=== PATIENT | female | born 1955 | race Caucasian/White ===

== ENCOUNTER 2018-01-21 05:58 | Observation (INO) | payer BC, SELFPAY ==
[2018-01-21] VITALS (15 sets, daily range): BP systolic 116–146; BP diastolic 62–90; PULSE 77–92; RESP 16–18; TEMP 36.6–37.6; O2SAT 92–100; BMI 33.7; BMI 30.1
--- NOTE | 2018-01-21 06:30 | RAD_ITS ---
STUDY: X-RAY - LEFT ANKLE REASON FOR EXAM: Female, 62 years old. Fell this morning, left ankle pain and swelling TECHNIQUE: 2 view(s) of the ankle. COMPARISON: None. FINDINGS: There is an acute avulsed transverse fracture of the medial malleolus with medial displacement of the distal tibia, oblique fracture of the distal fibula with lateral displacement of the lateral malleolus. The talus is laterally subluxed in relation to the tibial articular surface. Talus dome is intact. There is adjacent soft tissue swelling. There is a additional fracture of the posterior tibia. Normal visualized talus and calcaneus with large enthesophyte and moderate plantar calcaneal spur formation.. The visualized subtalar, talonavicular, calcaneocuboid and tarsal articulations are normal. RAD/Ankle 2 Views IMPRESSION: Trimalleolar fracture with lateral subluxation of the talus and soft tissue swelling. Electronically Signed: Aparna Castillo MD at 6:55 EDT , Service support ,
--- NOTE | 2018-01-21 06:36 | ED.VISSUMM ---
- ER Visit Summary Date of Service: 01/21/18 Chief Complaint: [] Injured the left ankle History of Present Illness: The patient is a 62 F [] planing of injury to left ankle today. She fell when she was walking her dog. Her ankle went inwards. She thinks she broke it. She cannot ambulate. Brought in by EMS. Current severity is moderate. No previous injury. Physical Examination: [] Vital signs reviewed General: Well-nourished well-developed Head: Normocephalic atraumatic Eyes: Pupils equal round and reactive to light extraocular movements intact ENT: TMs clear no hemotympanum no trauma Neck: Nontender full range of motion Cardiovascular: Regular rate rhythm no murmurs normal S1-S2 Respiratory: No distress clear to auscultation bilaterally chest nontender Abdomen: Soft nontender nondistended normal bowel sounds no masses Back: Nontender no CVA tenderness Extremities: Palpation diffuse left ankle with decreased range of motion. Dorsalis pedis pulses present. Skin: malleolus has a very superficial wound suggests that her medial malleolus may have punctured through the skin. No bony protrusion at this time. Neuro alert oriented cranial nerves II through XII intact normal strength sensation reflexes Test Results: [] Emergency Department Course and Treatment: [] Ice pack applied. X-ray of the ankle obtained. Trimalleolar fracture with significant lateral subluxation. Patient given a tetanus shot and Ancef for the fact that she has a puncture wound from the medial portion of the tibia. Discussed with Dr. Soto. Iodine was used to cleanse the wound and a well-padded sugar tong Ortho-Glass splint was placed. She distal neurovascular intact. Pulses remain normal. She will be taken to the operating room in 1 hour for surgical fixation. Treatment Plan: [] Disposition: [] Impression: [] Trimalleolar ankle fracture subluxation with puncture wound This note was generated with [employer] dictation software. It may contain incorrect words, spelling, and punctuation that were not noted in review of the chart prior to signing ED Disposition - Plan for ED Patient: Chief Complaint: Lower Extremity Injury Referrals: [facility] Doctor,Out of [Primary Care Provider] -
[2018-01-21] MEDS: 0.9% Normal Saline 1,000 ML 150 ML IV (07:08)
[2018-01-21] MEDS: Morphine 2 MG/ML Syringe IV ×2 (07:10→22:26)
[2018-01-21] MEDS: Diphth,Pertuss(Acell),Tet Vac 0.5 ML Vial IM (07:33)
--- NOTE | 2018-01-21 09:02 | CON.PCM_ITS ---
Problem List (1) Trimalleolar fracture of left ankle Status: Acute Qualifiers: Encounter type: initial encounter Fracture type: open Reason for Consult Date of Consultation: 01/21/18 History of Present Illness: The patient is a 62 year old F who injured her left ankle this morning when she was walking her dog. Patient states she was going down a hill when she slipped and her ankle twisted. Patient had immediate pain. Patient was unable to ambulate. EMS was called and patient was brought to [facility] emergency room for evaluation. X-rays reveal a trimalleolar ankle fracture. Patient was given tetanus shot in the emergency room. The puncture wound over the medial aspect of the ankle was cleaned in the emergency room with iodine and then placed in a well-padded sugar tong splint. Dr. Soto was consulted. Patient denies any previous trauma or injury to the left ankle. She does report having a right fifth metatarsal fracture in the past. Patient currently denies any chest pain, shortness of breath, fevers chills, or recent infections. Patient has medical history pertinent for hypothyroidism. Last time patient ate was last night at 9 PM. Patient states she does live alone. Patient currently denies any numbness and tingling in the left lower extremity. Chief complaint is pain around the fracture site. Past Medical History Allergies sulfamethoxazole [From Bactrim] Allergy (Verified 01/21/18 06:03) Anaphylaxis trimethoprim [From Bactrim] Allergy (Verified 01/21/18 06:03) Anaphylaxis adhesive tape Adverse Reaction (Verified 01/21/18 06:03) Hives Home Medications: Ambulatory Orders Medication Instructions Recorded Levothyroxine [Synthroid] 88 mcg PO DAILY 01/21/18 Surgical History: - - Myomectomy Lives: Alone Smoking Status: Never smoker Patient Problems: Active and Suspected Problems Trimalleolar fracture of left ankle (Acute) Objective: Vital signs are stable, afebrile. Patient resting comfortably in bed. Patient currently has splint placed from emergency room department. Patient has good capillary refill in digits are pink and warm. Sensations intact to the toes. Patient is able to wiggle her toes. Patient reports no knee pain. Patient denies any numbness and tingling. Pain is primarily at the ankle. - Physical Exam General: Alert, Oriented x3, Cooperative Extremities: Capillary Refill Less than 3 Seconds Vital Signs Temp Pulse Resp BP Pulse Ox 98.1 F 90 16 146/89 H 98 01/21/18 07:15 01/21/18 08:12 01/21/18 08:12 01/21/18 08:12 01/21/18 08:12 Oxygen Delivery Method Room Air Weight: 86.4 kg Body Mass Index (BMI) 33.7 Assessment/Plan Active and Suspected Problems Trimalleolar fracture of left ankle (Acute) Diagnostic studies: X-rays were reviewed from [facility] on January 21, 2018 including 2 views which does reveal a left trimalleolar ankle fracture. There is a displaced medial malleolus fragment with laterally displaced distal fibula fracture with lateral subluxation of the talus. On lateral view does appear to be a posterior medial malleolus fracture. No other fractures in the ankle and foot are noted. 1. Left open trimalleolar ankle fracture 2. Hypothyroidism Case was discussed with Dr. Norm Soto. The plan will be for irrigation debridement with open reduction internal fixation of the left ankle secondary to an open trimalleolar ankle fracture. Patient wishes to proceed with above- stated procedure. Last time patient had any food was last night at 9 PM. Patient will remain n.p.o. and will get Ancef preoperatively. Potential risks, benefits, and complications of this procedure were discussed in detail including but not limited to , infection, nerve and blood vessel damage, persistent pain, numbness, tingling, paresthesias, blood clot, pulmonary embolism, and requirement for further surgery. The patient expressed full understanding has no further questions for the doctor. Patient does agree to proceed with the above-stated procedure and has signed the surgery consent form.
--- NOTE | 2018-01-21 12:15 | RAD_ITS ---
STUDY: X-RAY - LEFT ANKLE REASON FOR EXAM: Female, 62 years old. ORIF TECHNIQUE: 3 C-arm view(s) of the ankle. 7 seconds of fluoroscopy time. COMPARISON: Earlier the same day. FINDINGS: These views show placement of compression plate and screws across distal fibula and 2 screws through the medial malleolus repairing fractures into anatomic alignment and position. Normal ankle mortise. Electronically Signed: Boy Pool MD at 16:51 EDT , Service support , RAD/Ankle 2 Views
[2018-01-21] MEDS: Dext 5%-0.45% NS 1,000 ML 100 ML IV (16:51)
[2018-01-21] MEDS: Aspirin 325 MG Tablet PO (18:25)
[2018-01-21] MEDS: Ondansetron 4 MG/2 ML Vial IV (18:25)
[2018-01-21] MEDS: Cefazolin 1 GM/50 ML BAG IV (20:53)
[2018-01-22] MEDS: HYDROcodone Bitartrate/Apap 5/325 Tablet PO ×2 (02:03→08:29)
[2018-01-22 02:20] VITALS: BP 109/60; PULSE 80; RESP 18; TEMP 36.6; O2SAT 97
[2018-01-22] MEDS: Cefazolin 1 GM/50 ML BAG IV (05:07)
[2018-01-22] MEDS: Levothyroxine 88 MCG Tablet PO (05:10)
[2018-01-22] MEDS: Ondansetron 4 MG/2 ML Vial IV (06:44)
[2018-01-22] MEDS: 0.9% NaCl Peripheral Flush Adult/Peds IV ×2 (06:45→10:01)
[2018-01-22] MEDS: Morphine 2 MG/ML Syringe IV ×2 (06:45→10:00)
--- NOTE | 2018-01-22 07:06 | PCM.PN.ORT ---
Patient Problems: Active and Suspected Problems Trimalleolar fracture of left ankle (Acute) Subjective: The patient was sitting in bed upon examination. Patient denies any chest pain, shortness of breath, dizziness, lightheadedness, nausea or vomiting, or calf pain. Pain is controlled on medications. No adverse overnight events. Patient states her pinky toe is being crushed. The Lacho wrap was loosened and patient states this was very helpful. Patient has physical therapy this morning for instruction on gait training with crutches/walker. Objective: Vital signs stable and afebrile. Patient is able to wiggle her toes Sensation is intact to toes Splint is clean dry and intact without breakthrough drainage. Lacho wrap was loosened around the toes which improved symptoms. Capillary refill less than 3 seconds, toes are pink and warm. - Physical Exam General: Alert, Oriented x3, Cooperative, No apparent distress Vital Signs Temp Pulse Resp BP Pulse Ox 98 F 80 18 109/60 97 01/22/18 02:20 01/22/18 02:20 01/22/18 02:20 01/22/18 02:20 01/22/18 02:20 Oxygen Flow Rate (L/min) 2 Oxygen Delivery Method Room Air Weight: 77.111 kg Body Mass Index (BMI) 30.1 Intake and Output for Last 24 Hours 01/20/18 01/21/18 01/22/18 23:59 23:59 23:59 Intake Total 1882 / 1882 2258 / 2258 Output Total 330 / 330 1800 / 1800 Balance 1552 / 1552 458 / 458 Medical Necessity - Tobacco Use Smoking Status: Never smoker Assessment/Plan Active and Suspected Problems Trimalleolar fracture of left ankle (Acute) 1. Status post left irrigation debridement and open reduction internal fixation trimalleolar left ankle fracture postop day #1 2. Continue pain medications: Currently on [place] and controlling pain 3. DVT prophylaxis: Aspirin 325 mg twice daily with food 4. PT/OT: Nonweightbearing, will teach gait training with crutches/walker. 5. Disposition: Patient will follow-up with Dr. Youngblood in approximately 12 days for removal of sutures and repeat x-ray. Prescriptions are attached to chart. Patient will follow-up postoperatively per discharge instructions.
--- NOTE | 2018-01-22 07:10 | PN.ORTHO_ITS ---
Patient Problems: Active and Suspected Problems Trimalleolar fracture of left ankle (Acute) Subjective: The patient was sitting in bed upon examination. Patient denies any chest pain , shortness of breath, dizziness, lightheadedness, nausea or vomiting, or calf pain. Pain is controlled on medications. No adverse overnight events. Patient states her pinky toe is being crushed. The Lacho wrap was loosened and patient states this was very helpful. Patient has physical therapy this morning for instruction on gait training with crutches/walker. Objective: Vital signs stable and afebrile. Patient is able to wiggle her toes Sensation is intact to toes Splint is clean dry and intact without breakthrough drainage. Lacho wrap was loosened around the toes which improved symptoms. Capillary refill less than 3 seconds, toes are pink and warm. - Physical Exam General: Alert, Oriented x3, Cooperative, No apparent distress Vital Signs Temp Pulse Resp BP Pulse Ox 98 F 80 18 109/60 97 01/22/18 02:20 01/22/18 02:20 01/22/18 02:20 01/22/18 02:20 01/22/18 02:20 Oxygen Flow Rate (L/min) 2 Oxygen Delivery Method Room Air Weight: 77.111 kg Body Mass Index (BMI) 30.1 Intake and Output for Last 24 Hours 01/20/18 01/21/18 01/22/18 23:59 23:59 23:59 Intake Total 1882 / 1882 2258 / 2258 Output Total 330 / 330 1800 / 1800 Balance 1552 / 1552 458 / 458 Medical Necessity - Tobacco Use Smoking Status: Never smoker Assessment/Plan Active and Suspected Problems Trimalleolar fracture of left ankle (Acute) 1. Status post left irrigation debridement and open reduction internal fixation trimalleolar left ankle fracture postop day #1 2. Continue pain medications: Currently on [place] and controlling pain 3. DVT prophylaxis: Aspirin 325 mg twice daily with food 4. PT/OT: Nonweightbearing, will teach gait training with crutches/walker. 5. Disposition: Patient will follow-up with Dr. Youngblood in approximately 12 days for removal of sutures and repeat x-ray. Prescriptions are attached to chart. Patient will follow-up postoperatively per discharge instructions.
--- NOTE | 2018-01-22 07:12 | PCM.DC.ORTHO ---
Discharge Diet: No Restrictions Discharge Activity: May Not Drive Ice area for (Minutes): 20 - Ice area for 20 minutes each hour while awake Weight Bearing Status: No weight bearing - Left lower extremity Keep extremity elevated above heart level: Operative Extremity Call your doctor if your incision/area has: Continuous Slow Oozing, Sudden Increased Bleeding, Increased Pain/ Swelling, Increased Redness, Foul Smelling Discharge Call your doctor if you observe: Fever of 101 or Higher, Coldness, Increased Pain, Numbness or Tingling, Change in Color Additional Instructions: Must cover to shower Patient will follow-up in approximately 12 days at [place] [facility] with Dr. Youngblood for suture removal and follow-up x-ray. At that time patient will be placed in a cast at follow-up. Allergies/Adverse Reactions: Allergies sulfamethoxazole [From Bactrim] Allergy (Verified 01/21/18 06:03) Anaphylaxis trimethoprim [From Bactrim] Allergy (Verified 01/21/18 06:03) Anaphylaxis adhesive tape Adverse Reaction (Verified 01/21/18 06:03) Hives naproxen Adverse Reaction (Verified 01/21/18 17:33) Other FEVER Medications to take at Discharge Levothyroxine [Synthroid] 88 mcg PO 0600 01/21/18 Aspirin 325 mg PO BIDCM #60 tab 01/22/18 Hydrocodone Bitart/Apap 5-325 [[place] 5/325] 1 - 2 tab PO Q6H PRN PRN 7 Days #56 tab 01/22/18 The following prescriptions were given: Hydrocodone Bitart/Apap 5-325 [[place] 5/325] 1 - 2 tab PO Q6H PRN PRN 7 Days #56 tab PRN Reason: Mild-moderate pain (scale 1-5) Aspirin 325 mg PO BIDCM #60 tab Primary Care Physician: [facility] ,Out of [Primary Care Provider] - Please Follow Up With: Kb Youngblood MD When: Schedule f/u with Dr. Youngblood for February 03, 2018
[2018-01-22 08:20] VITALS: BP 112/65; PULSE 70; RESP 18; TEMP 36.7; O2SAT 94
[2018-01-22] MEDS: Aspirin 325 MG Tablet PO (08:26)
--- NOTE | 2018-01-22 13:50 | CHAPLAIN ---
Type of Pastoral Visit _x__ Initial Visit ___ Follow-up Visit ___ On-call Visit ___ General Patient Visit ___ Spiritual Assessment ___ Family Conference ___ Bereavement ___ Rapid Response ___ Code Blue ___ Other (describe below) Pastoral Care Referral From _x__ Patient ___ Family ___ Nurse ___ Physician ___ X Ray Service Engineer ___ Outboard Motor Tester ___ Other (describe below) Sacrament/Intervention ___ Active listening ___ Anointing ___ Zoroastrianism ___ Bereavement ___ Communion ___ Judy exploration ___ ___ Life review ___ Prayer ___ Reconciliation ___ Sacrament of Sick _x__ Supportive presence ___ Wedding ___ Other (describe below) Pastoral Comments patient requested contact with her parish; pt reported that she had visit from [facility] [employer]al[employer] Apprentice and she was satisfied; pt expressed thankfulness for the visit and personal attention
[2018-01-22 14:00] VITALS: BP 122/83; PULSE 79; RESP 18; TEMP 36.4; O2SAT 99
== END 2018-01-22 14:38 | disposition home or self-care (01) ==
LOC: ED 08:03 → SDC 08:13 → AC 08:14 → MS3 01-22 06:13
PROVIDERS: Admitting Provider Orthopaedic Surgery; Emergency Provider Emergency Medicine; Visit Provider Specialist
DX: S82.852B Displaced trimalleolar fracture of left lower leg, initial encounter for open fracture type I or II (principal); W17.81XA Fall down embankment (hill), initial encounter; Y93.K1 Activity, walking an animal; Y92.9 Unspecified place or not applicable; Z23 Encounter for immunization; E03.9 Hypothyroidism, unspecified; Z79.899 Other long term (current) drug therapy; J45.909 Unspecified asthma, uncomplicated
CPT/HCPCS: 27822; 29515; 73600; 76000; 90715; 96361; 96365; 96366; 96375; 96376; 97162; 97166; 99218; 99285; J7030; A4216; G0378; J2405; J7799

== ENCOUNTER 2021-03-02 15:42 | Emergency (ER) | payer BC, SELFPAY ==
[2021-03-02 15:43] VITALS: BP 136/81; PULSE 63; RESP 18; TEMP 36.6; O2SAT 98; BMI 27.3
--- NOTE | 2021-03-02 15:57 | EKG12_ITS ---
Test Reason : UPPER EXTREMITY Blood Pressure : / mmHG Vent. Rate : 070 BPM Atrial Rate : 070 BPM P-R Int : 164 ms QRS Dur : 072 ms QT Int : 390 ms P-R-T Axes : 054 035 018 degrees QTc Int : 421 ms Normal sinus rhythm Low voltage QRS Borderline ECG Confirmed by FINN JARAMILLO, CELSO ([id number]), research editor ALONZO ABREU ([id number]) on 03/05/2021 10:07:09 AM Referred By: SHERIF Confirmed By:CELSO BRISENO MD
--- NOTE | 2021-03-02 15:58 | EX.ED.UPPERE ---
HPI History of Present Illness Chief Complaint: Upper Extremity Injury PFSH PFSH Home Medications levothyroxine 88 mcg PO 0600 01/21/18 [History Last Taken 01/20/18] aspirin 325 mg PO BIDCM #60 tab 01/22/18 [Rx Last Taken Unknown] hydrocodone-acetaminophen 1 - 2 tab PO Q6H PRN PRN 7 Days #56 tab 01/22/18 [Rx Last Taken Unknown] Allergy/AdvReac Type Severity Reaction Status Date / Time sulfamethoxazole Allergy Anaphylaxis Verified 03/02/21 15:42 [From Bactrim] trimethoprim [From Bactrim] Allergy Anaphylaxis Verified 03/02/21 15:42 adhesive tape AdvReac Hives Verified 03/02/21 15:42 naproxen AdvReac Other Verified 03/02/21 15:42 Social History Smoking Status: Never smoker EXAM Physical Exam Const Vital Signs: 03/02/21 15:43 Temperature 97.8 F Temperature Source Temporal Pulse Rate 63 Respiratory Rate 18 Blood Pressure 136/81 H Blood Pressure Mean 99 Pulse Ox 98 Oxygen Delivery Method Room Air Discharge Plan Triage Chief Complaint: Upper Extremity Injury ED Provider: Candy Gordon Dx/Rx/DC Orders Prescriptions: No Action levothyroxine 88 MCG tablet 88 mcg PO 0600 RF: 0 aspirin 325 MG tablet 325 mg PO BIDCM Qty: 60 RF: 0 hydrocodone-acetaminophen 1 TABLET tablet 1 - 2 tab PO Q6H PRN PRN (Reason: Mild-moderate pain (scale 1-5)) 7 Days Qty: 56 RF: 0 Primary Care Provider: [facility] Doctor,Out of
--- NOTE | 2021-03-02 15:59 | EDS_ITS ---
HPI History of Present Illness Chief Complaint: Upper Extremity Injury Detail of Chief Complaint: Left arm pain Informant: patient Onset/Context/Timing Onset: Yesterday Context: Gradual Onset Current Severity: Moderate Maximum Severity: Moderate Narrative Narrative: Patient present secondary left arm pain. She states last evening she developed pain over the thenar eminence and it has been radiating up her arm. She does admit to a brief episode of chest pain last evening. No known injury. [facility] Medical History (Updated 03/02/21 @ 17:[address] Candy Gordon MD) Domenico's thyroiditis Home Medications levothyroxine 88 mcg PO 0600 01/21/18 [History Last Taken 01/20/18] aspirin 325 mg PO BIDCM #60 tab 01/22/18 [Rx Last Taken Unknown] hydrocodone-acetaminophen 1 - 2 tab PO Q6H PRN PRN 7 Days #56 tab 01/22/18 [Rx Last Taken Unknown] prednisone 40 mg PO DAILY #8 tab 03/02/21 [Rx Last Taken Unknown] Allergy/AdvReac Type Severity Reaction Status Date / Time sulfamethoxazole Allergy Anaphylaxis Verified 03/02/21 15:42 [From Bactrim] trimethoprim [From Bactrim] Allergy Anaphylaxis Verified 03/02/21 15:42 adhesive tape AdvReac Hives Verified 03/02/21 15:42 naproxen AdvReac Other Verified 03/02/21 15:42 Social History Smoking Status: Never smoker ROS ROS ED Constitutional Constitutional ED: Denies chills or fever(s) Eyes Eyes: Denies change in vision ENT ENT ED: Denies sore throat Cardiovascular Cardiovascular: Reports chest pain Respiratory/Chest Respiratory/Chest: Denies cough or dyspnea Gastrointestinal Gastrointestinal: Denies abdominal pain, diarrhea, nausea or vomiting Genitourinary Genitourinary ED: Denies dysuria Musculoskeletal Musculoskeletal: Reports arthralgias; Denies back pain Integumentary Denies rash Neurologic Neurologic: Denies headache(s) or weakness Psychiatric Psychiatric: Denies anxiety or depression Endocrine Endocrinology: Denies polydipsia or polyuria Allergic/Immunologic Allergic/Immunologic ED: Denies urticaria EXAM Physical Exam Const Vital Signs: 03/02/21 15:43 03/02/21 16:27 Temperature 97.8 F Temperature Source Temporal Pulse Rate 63 Respiratory Rate 18 Blood Pressure 136/81 H Blood Pressure Mean 99 Pulse Ox 98 100 Oxygen Delivery Method Room Air Room Air Positive well nourished and well developed General Appearance ED: well developed HEENT Reports normocephalic and head/scalp atraumatic Eyes PERRL and EOMs intact bilaterally Neck supple Chest Wall inspection of chest normal and palpation of chest normal Resp normal respiratory effort and clear to auscultation bilaterally Cardio regular rate and regular rhythm GI normal to inspection, nondistended, normoactive bowel sounds Palpation: soft Extremity normal to inspection Extremity Narrative: Mild tenderness over the radial aspect of the right wrist. No significant edema. Strong pulses and normal cap refill. Neuro oriented x3 and no sensory deficits noted Sensorium / Orientation: alert Motor Exam: strength 5/5 throughout Psych mental status grossly normal Skin no rashes or lesions noted MDM MDM MDM Narrative Medical decision making narrative: Patient was placed on compliance monitor. EKG, labs, chest x-ray are obtained. Patient was given aspirin. Lab Data Attestation: I reviewed the patient's lab results. Labs: Laboratory Results - last 24 hr 03/02/21 03/02/21 03/02/21 16:19 16:19 16:19 WBC 6.9 RBC 4.24 Hgb 12.8 Hct 39.1 MCV 92.2 MCH 30.2 MCHC 32.7 RDW Std Deviation 41.5 RDW Coeff of [place] 12.3 Plt Count 293 MPV 10.3 Immature Gran % (Auto) 0.100 Neut % (Auto) 49.5 Lymph % (Auto) 36.8 Villalba % (Auto) 8.8 Eos % (Auto) 4.1 Baso % (Auto) 0.7 Absolute Neuts (auto) 3.4 Absolute Lymphs (auto) 2.54 Nucleated RBC % 0 D-Dimer Quant (PE/DVT) < 0.27 L Sodium 141 Potassium 3.8 Chloride 107 Carbon Dioxide 29.0 Anion Gap 5 BUN 15 Creatinine 0.89 Estim Creat Clear Calc 50.51 Est GFR (MDRD) Af Amer 82 Est GFR (MDRD) Non-Af 68 BUN/Creatinine Ratio 16.9 Glucose 84 Calcium 9.1 Troponin I < 0.015 Radiography Chest X-Ray - ED: 1 View, Read by ED Physician, Normal, Heart, Lungs and Mediastinum Diagnostic Testing: Radiology Impression Chest X-Ray 03/02/21 16:25 IMPRESSION: 1. No airspace consolidation or pleural effusion. 2. Possible 6 mm nodule in the right mid lung. No comparison study. Recommend chest CT. Electronically Signed: Benedict Cortes MD (Brooks) at 16:54 EDT , Service support , EKG Initial EKG: Attestation: I personally reviewed and interpreted this EKG as follows: Interpretation: Sinus Rhythm (Sinus at 70 with no acute ischemia.) Treatment and Re-Evaluation Comments:: Chest x-ray per my interpretation was no obvious acute abnormalities. Radiology interpretation is reviewed. Test results discussed with the patient including negative D-dimer and troponin. She is reassured with these findings. She will be treated the short course of prednisone for neuropathy. We did discuss the right lung nodule on her chest x-ray. She states that the [facility] has been following this for years. Discharge Plan Triage Chief Complaint: Upper Extremity Injury ED Provider: Candy Gordon Dx/Rx/DC Orders Clinical Impression: Neuropathy Instructions: ED Neuropathy, Peripheral Prescriptions: New prednisone 20 MG tablet 40 mg PO DAILY Qty: 8 RF: 0 No Action levothyroxine 88 MCG tablet 88 mcg PO 0600 RF: 0 aspirin 325 MG tablet 325 mg PO BIDCM Qty: 60 RF: 0 hydrocodone-acetaminophen 1 TABLET tablet 1 - 2 tab PO Q6H PRN PRN (Reason: Mild-moderate pain (scale 1-5)) 7 Days Qty: 56 RF: 0 Primary Care Provider: Clementina Mccloud Referrals: Clementina Mccloud MD [Primary Care Provider] - 1 Week if not improving Disposition Disposition: Home, self care
--- NOTE | 2021-03-02 16:01 | NURSING ---
NO OLD EKGS
--- NOTE | 2021-03-02 16:25 | RAD_ITS ---
STUDY: X-RAY CHEST REASON FOR EXAM: Female, 65 years old. chest pain TECHNIQUE: AP COMPARISON: None. FINDINGS: EKG leads project over the chest. 6 mm nodule projects in the right mid lung field just over the superior margin of the right posterior seventh rib. There is no demonstrated pleural abnormality. Normal size heart. Normal mediastinum and javy. Normal visualized pulmonary arteries. There is atherosclerotic tortuosity of the aortic arch and descending thoracic aorta. There are diffuse degenerative changes of the visualized thoracic spine. Normal visualized ribs, clavicles, and shoulders. There is no demonstrated abnormality of the visualized soft tissue structures of the upper abdomen. RAD/Chest 1 View (Portable) IMPRESSION: 1. No airspace consolidation or pleural effusion. 2. Possible 6 mm nodule in the right mid lung. No comparison study. Recommend chest CT. Electronically Signed: Benedict Cortes MD ([place]oks) at 16:54 EDT , Service support ,
[2021-03-02 16:27] VITALS: O2SAT 100
[2021-03-02] MEDS: Aspirin 81 MG TAB.CHEW 324 MG PO (16:31)
[2021-03-02 16:34] LABS: Absolute Lymphocyte Count 2.54 X10^3/uL (0.83-4.51); Absolute Neutrophil Count 3.4 X10^3/uL (2.0-7.7); Basophil# 0.05 X10^3/uL; Basophil% 0.7 % (0-1); Eosinophil# 0.28 X10^3/uL; Eosinophils% 4.1 % (0-5); Hematocrit 39.1 % (37-47); Hemoglobin 12.8 g/dL (12.0-15.0); Lymphocyte # 2.54 X10^3/ul (0.83-4.51); Lymphocyte % 36.8 % (19-41); Mean Corp Hgb Conc 32.7 g/dL (32-36); Mean Corpuscular Hgb 30.2 pg (27.0-32.0); Mean Corpuscular Volume 92.2 fL (81-99); Mean Platelet Vol. 10.3 fl (6.2-12.0); Monocyte# 0.61 X10^3/uL; Monocyte% 8.8 % (0-10); NRBC Flagged by Analyzer 0 % (0-5); Neutrophil # 3.42 X10^3/uL (2.7-7.7); Neutrophil % 49.5 % (47-70); Platelet Count 293 K/mm3 (150-450); RBC Distribution Width CV 12.3 % (11.6-14.6); RBC Distribution Width SD 41.5 fl (35.1-43.9); Red Blood Count 4.24 M/mm3 (4.2-5.4); White Blood Count 6.9 K/mm3 (4.4-11.0)
[2021-03-02 16:44] LABS: Anion Gap 5 (5-15); BUN 15 mg/dL (7-18); BUN/Creat Ratio 16.9 RATIO (10-20); Calcium,Total 9.1 mg/dL (8.5-10.1); Chloride 107 mmol/L (98-107); Creatinine, Serum 0.89 mg/dL (0.55-1.02); EST Glomerular Filtration Rate 68 mL/min (>60); Est Glom Filt Rate - Afr Amer 82 mL/min (>60); Estimated Creatinine Clearance 50.51 ml/min; Glucose 84 mg/dL (74-106); Potassium 3.8 mmol/L (3.5-5.1); Sodium Level 141 mmol/L (136-145)
[2021-03-02 16:50] LABS: D-Dimer Quantitative (DVT/PE) < 0.27 FEU/ug/m (0.27-0.49)
[2021-03-02] MEDS: predniSONE 20 MG Tablet 40 MG PO (17:24)
== END 2021-03-02 17:27 | disposition home or self-care (01) ==
PROVIDERS: Emergency Provider Emergency Medicine; PCP Internal Medicine
DX: G62.9 Polyneuropathy, unspecified (principal); E06.3 Autoimmune thyroiditis; Z79.82 Long term (current) use of aspirin; Z79.899 Other long term (current) drug therapy
CPT/HCPCS: 71045; 80048; 84484; 85025; 85379; 93005; 99285; A4216

== ENCOUNTER 2021-12-13 09:48 | Outpatient (CLI) | payer BC, MEDICARE, SELFPAY ==
[2021-12-13 11:08] LABS: CRP, High Sensitivity Cardiac 2.89 mg/L
== END 2021-12-13 23:59 | disposition home or self-care (01) ==
PROVIDERS: PCP Internal Medicine; Referring Provider Internal Medicine Cardiovascular Disease; Visit Provider Internal Medicine Cardiovascular Disease
DX: R07.9 Chest pain, unspecified (principal)
CPT/HCPCS: 36415; 86141

== ENCOUNTER 2021-12-20 06:41 | Outpatient (CLI) | payer BC, MEDICARE, SELFPAY ==
--- NOTE | 2021-12-20 06:57 | ECHOD_ITS ---
Reason For Study: Chest pain Procedure This was a 2D Doppler, Color Flow transthoracic echocardiogram. Exam performed in department. Left Ventricle Normal LV size. Left ventricular systolic function is normal. The estimated ejection fraction is 55 %. Normal diastology for age. No regional wall motion abnormalities noted. Right Ventricle Normal RV size. Normal systolic function. Atria Normal left atrium. Normal right atrium. Mitral Valve Normal mitral valve. Tricuspid Valve Normal tricuspid valve. Mild tricuspid valve insufficiency. Pulmonary artery systolic pressure is 24 mmHg. Aortic Valve Normal aortic valve. Trisinus/trileaflet aortic valve. Pulmonic Valve Normal pulmonic valve. Great Vessels Normal aortic root. The pulmonary artery is normal size. Normal inferior vena cava. Pericardium/Pleural No pericardial effusion. MMode/2D Measurements & Calculations LVIDd: 4.4 cm IVSd: 0.81 cm Ao root diam: 2.7 cm LVIDs: 2.5 cm LVPWd: 0.75 cm RVDd: 3.0 cm FS: 43.8 % LAV(MOD-bp): 45.9 ml LVAd ap4: 21.7 cm2 LVAd ap2: 23.4 cm2 LAV(MOD-bp) Indexed: 27.0 ml/m2 LVLd ap4: 6.9 cm LVLd ap2: 6.7 cm LAV(MOD-sp2): 50.9 ml EDV(MOD-sp4): 56.7 ml EDV(MOD-sp2): 69.8 ml LAV(MOD-sp4): 40.0 ml EDV(sp4-el): 58.4 ml EDV(sp2-el): 69.5 ml LVAs ap4: 10.4 cm2 LVAs ap2: 11.6 cm2 LVLs ap4: 5.6 cm LVLs ap2: 5.7 cm ESV(MOD-sp4): 16.7 ml ESV(MOD-sp2): 19.7 ml ESV(sp4-el): 16.3 ml ESV(sp2-el): 19.8 ml EF(MOD-sp4): 70.6 % EF(MOD-sp2): 71.8 % EF(sp4-el): 72.0 % SV(MOD-sp4): 40.0 ml SV(MOD-sp2): 50.2 ml SV(sp4-el): 42.0 ml LA dimension(2D): 3.5 cm LA A4 area: 16.0 cm2 RA A4 area: 14.7 cm2 Doppler Measurements & Calculations MV E max carlos: 101.5 cm/sec Lat Peak E' Carlos: 11.6 cm/sec Med Peak E' Carlos: 8.3 cm/sec MV A max carlos: 74.0 cm/sec E/E' lat: 8.7 E/E' med: 12.3 MV E/A: 1.4 Ao V2 max: 128.9 cm/sec LV V1 max: 109.9 cm/sec PA V2 max: 97.1 cm/sec Ao max P.7 mmHg LV V1 max P.8 mmHg TR max carlos: 227.4 cm/sec TR max P.7 mmHg ECHO/Echo Complete Interpretation Summary Normal LV size. Left ventricular systolic function is normal. The estimated ejection fraction is 55 %. Normal diastology for age. Pulmonary artery systolic pressure is 24 mmHg. Ordering Physician: Alonso Hayes Referring Physician: Clementina Mccloud Performed By: Selena Norris RDCS
--- NOTE | 2021-12-20 17:05 | STRESSREP ---
Stress Test Report Exercise myocardial perfusion stress test. 66-year-old lady with a history of chest pain. Stress protocol: Resting EKG demonstrates normal sinus rhythm with a rate of 64 bpm. Resting blood pressure is 122/70 mmHg. The patient exercised according to regular Macho protocol for total duration of 7 minutes and 30 seconds. Patient completed 1 minute and 30 seconds into stage III of the Macho protocol. The maximum heart rate was 155 bpm which was 100% of max impact at heart rate. The maximum workload was 10.1 metabolic equivalents. Patient maintained sinus rhythm throughout the recording. At rest there were no ST or T wave changes noted suggest ischemia. At peak exercise upsloping ST changes were noted which did not meet the criteria for ischemia. The peak blood pressure was 152/68. Myocardial perfusion protocol. 11.5 mCi of technetium 99m sestamibi was injected at rest. The patient exercised according to regular Macho protocol for total duration of 7 minutes and 30 seconds. At peak exercise 33.5 mCi of technetium 99m sestamibi was injected stress images were obtained stress and rest images were reconstructed and compared in the short axis vertical long and horizontal long axis. Gated images were also obtained per Diffusion SPECT analysis: Review of the stress images demonstrate normal uptake of tracer noted in all areas of the myocardium. The resting images similarly demonstrate normal uptake of tracer noted in all areas of the myocardium. No areas of reversibility are noted to suggest ischemia and no previous infarct is noted. Gated SPECT analysis: The gated ejection fraction is noted to be 83%. Conclusion: Normal exercise myocardial perfusion stress test at a moderate workload. Preserved ejection fraction.
== END 2021-12-20 23:59 | disposition home or self-care (01) ==
PROVIDERS: PCP Internal Medicine; Referring Provider Internal Medicine Cardiovascular Disease; Visit Provider Internal Medicine Cardiovascular Disease
DX: R07.9 Chest pain, unspecified (principal)
CPT/HCPCS: 78452; 93017; 93306; A9500; A4216

== ENCOUNTER 2021-12-30 13:05 | Outpatient (CLI) | payer BC, MEDICARE, SELFPAY ==
[2021-12-29 10:00] VITALS: BP 118/62; PULSE 57; RESP 16; O2SAT 99; BMI 27.8
--- NOTE | 2021-12-30 13:10 | CT_ITS ---
STUDY: CT CHEST WITHOUT CONTRAST REASON FOR EXAM: Female, 66 years old. CAD RADIATION DOSAGE (If Supplied By Facility): CTDIvol = ( 12.19 ) mGy, DLP = ( 146.28 ) mGycm TECHNIQUE: Transaxial imaging was performed without the administration of intravenous contrast material. Individualized dose optimization techniques were used for this CT. COMPARISON: None. FINDINGS: The lungs demonstrate a 9 mm calcified granuloma in the right mid lung field.. There is no demonstrated pleural abnormality. Normal heart and pericardium. Normal mediastinum. Normal hilar regions. Normal unenhanced pulmonary arteries. Normal aorta arch and descending thoracic aorta. Normal osseous structures. There is no demonstrated abnormality of the visualized upper abdomen. CT/Limited Chest CT w/CCTA IMPRESSION: Postinflammatory calcification right lung. Electronically Signed: Zoran Simon MD at 7:13 EDT ,
--- NOTE | 2021-12-30 16:46 | CA.SCORE ---
Calcium Scoring Coronary Calcium Scoring: High-resolution Computed Tomographic imaging of the chest was performed on [December 30, 2021], with particular attention paid to the coronary arteries. Images from the examination were analyzed for the presence and extent of coronary artery calcification , using coronary calcium quantification software. The patient tolerated the procedure well and there were no complications. The results of the coronary calcification analysis are provided below. Coronary calcium score. Left main-score 0.7 Left anterior descending artery score 0 Left circumflex artery score 0 Right coronary artery score 0 Total Agatston score 0.7 The above is suggestive of 10th percentile ranking. Calcium Scoring Interpretation: 0 No identifiable atherosclerotic plaque. Very low cardiovascular disease risk. <5% chance of presence coronary artery disease A Negative Examination 1-10 Minimal Plaque burden. Significant coronary artery disease very unlikely. 11-100 Mild plaque burden. Likely mild or minimal coronary atherosclerosis. 101-400 Moderate plaque burden Moderate non-obstructive coronary artery disease highly likely. Over 400 Extensive plaque burden. High likelihood of at least one significant coronary stenosis (>50% diameter)
== END 2021-12-30 23:59 | disposition home or self-care (01) ==
PROVIDERS: PCP Internal Medicine; Referring Provider Internal Medicine Cardiovascular Disease; Visit Provider Internal Medicine Cardiovascular Disease
DX: R07.9 Chest pain, unspecified (principal); I25.10 Atherosclerotic heart disease of native coronary artery without angina pectoris
CPT/HCPCS: 75571; 76380

== ENCOUNTER → 2023-02-09 | Outpatient (CLI) | payer MEDICARE, OTHER, SELFPAY ==
[2023-02-09 16:02] LABS: Absolute Lymphocyte Count 1.98 X10^3/uL (0.83-4.51); Absolute Neutrophil Count 3.1 X10^3/uL (2.0-7.7); Basophil# 0.07 X10^3/uL; Basophil% 1.2 % (0-1); Eosinophil# 0.24 X10^3/uL; Eosinophils% 4.1 % (0-5); Hematocrit 41.6 % (37-47); Lymphocyte # 1.98 X10^3/ul (0.83-4.51); Lymphocyte % 33.7 % (19-41); Mean Corp Hgb Conc 31.3 g/dL (32-36); Mean Corpuscular Volume 95.9 fL (81-99); Mean Platelet Vol. 10.7 fl (6.2-12.0); Monocyte# 0.52 X10^3/uL; Monocyte% 8.8 % (0-10); NRBC Flagged by Analyzer 0 % (0-5); Neutrophil # 3.05 X10^3/uL (2.7-7.7); Neutrophil % 51.9 % (47-70); Platelet Count 279 K/mm3 (150-450); RBC Distribution Width CV 12.1 % (11.6-14.6); Red Blood Count 4.34 M/mm3 (4.2-5.4); White Blood Count 5.9 K/mm3 (4.4-11.0)
[2023-02-09 16:25] LABS: Ferritin 54 ng/mL (8-252); Iron 80 ug/dL (50-170); Iron Binding Capacity,Total 266 ug/dL (250-450); PERCENT IRON SATURATION 30.1 % (15.0-55.0)
[2023-02-09 17:32] LABS: Vitamin D,25 Hydroxy 69.7 ng/mL
== END | disposition home or self-care (01) ==
LOC: BIMLAB 14:16
PROVIDERS: PCP Internal Medicine; Referring Provider Internal Medicine; Visit Provider Internal Medicine
DX: E55.9 Vitamin D deficiency, unspecified (principal); E03.9 Hypothyroidism, unspecified; Z86.39 Personal history of other endocrine, nutritional and metabolic disease
CPT/HCPCS: 36415; 82306; 82728; 83540; 83550; 85025

== ENCOUNTER → 2023-08-04 | Outpatient (CLI) | payer MEDICARE, OTHER, SELFPAY ==
--- NOTE | 2023-08-04 15:10 | RAD_ITS ---
STUDY: X-RAY - LUMBAR SPINE REASON FOR EXAM: Female, 67 years old. Back pain. TECHNIQUE: 2 view(s) of the lumbar spine were obtained. COMPARISON: None FINDINGS: Osteopenia. Normal lumbar lordosis. Rotatory dextroscoliosis. Normal alignment of the vertebral bodies. Endplate concavities which may be secondary to osteoporosis. Diffuse lower thoracic and lumbosacral facet sclerosis. Intervertebral disc space narrowing diffusely, most marked at L2-3 and L3-4 with osteophytes. Normal soft tissues. RAD/Lumbar Spine 2 or 3 Views IMPRESSION: Osteopenia with moderate lower thoracic and lumbosacral spondylosis. Electronically Signed: Feliciano Giron MD at 16:11 EST ,
== END | disposition home or self-care (01) ==
LOC: MTRAD 15:10
PROVIDERS: PCP Internal Medicine; Referring Provider Internal Medicine; Visit Provider Internal Medicine
DX: M54.50 Low back pain, unspecified (principal); G89.18 Other acute postprocedural pain
CPT/HCPCS: 72100

== ENCOUNTER → 2023-11-04 | Outpatient (CLI) | payer MEDICARE, OTHER, SELFPAY ==
[2023-11-04 11:14] LABS: Absolute Lymphocyte Count 1.98 X10^3/uL (0.83-4.51); Absolute Neutrophil Count 2.3 X10^3/uL (2.0-7.7); Basophil# 0.05 X10^3/uL; Eosinophil# 0.28 X10^3/uL; Eosinophils% 5.5 % (0-5); Hematocrit 40.2 % (37-47); Hemoglobin 13.1 g/dL (12.0-15.0); Lymphocyte # 1.98 X10^3/ul (0.83-4.51); Lymphocyte % 38.7 % (19-41); Mean Corp Hgb Conc 32.6 g/dL (32-36); Mean Corpuscular Hgb 30.5 pg (27.0-32.0); Mean Corpuscular Volume 93.5 fL (81-99); Mean Platelet Vol. 10.3 fl (6.2-12.0); Monocyte% 9.8 % (0-10); NRBC Flagged by Analyzer 0 % (0-5); Neutrophil # 2.29 X10^3/uL (2.7-7.7); Neutrophil % 44.6 % (47-70); Platelet Count 271 K/mm3 (150-450); RBC Distribution Width CV 12.2 % (11.6-14.6); White Blood Count 5.1 K/mm3 (4.4-11.0)
[2023-11-04 11:51] LABS: ALB/GLOB Ratio 1.1 RATIO (0.9-2.4); AST(SGOT) 10 U/L (15-37); Alanine Aminotransfer ALT/SGPT 18 U/L (13-56); Albumin, Serum 3.8 g/dL (3.2-5.0); Alkaline Phosphatase 62 U/L (45-117); Anion Gap 3 (5-15); BUN 15 mg/dL (7-18); BUN/Creat Ratio 16.5 RATIO (10-20); Calcium,Total 9.7 mg/dL (8.5-10.1); Chloride 109 mmol/L (98-107); Cholesterol 208 mg/dL (200); Creatinine, Serum 0.91 mg/dL (0.55-1.02); EST Glomerular Filtration Rate 66 mL/min (>60); Est Glom Filt Rate - Afr Amer 79 mL/min (>60); Globulin 3.5 g/dL (2.2-4.2); Glucose 93 mg/dL (74-106); High Density Lipoprotein 73 mg/dL; Protein, Total 7.3 g/dL (6.4-8.2); Sodium Level 140 mmol/L (136-145); Triglycerides 61 mg/dL; Very Low Density Lipoprotein 12 mg/dL (5-40)
--- OUTSIDE RECORDS SUMMARY | 2023-11-04 13:11 | XMS RPT_ITS | CCD ---
Author Name Unknown Address [address] [place] [address] Organization [facility] Care Team Providers Care Technical Services Representative Name Role Phone MAYO, GIDEON Espino Unavailable Unavailable MAYO, GIDEON Espino Unavailable Unavailable NO REFERRING Unavailable Unavailable DAMIAN, MARY Unavailable Unavailable DAMIAN, MARY Unavailable Unavailable MAYO, GIDEON PEDROZA Unavailable Unavailable MAYO, GIDEON PEDROZA Unavailable Unavailable Immanuel JARAMILLO, [facility] Primary Care Provider Immanuel JARAMILLO, Clementina Primary Care Provider Immanuel JARAMILLO, [facility] Primary Care Provider Triston Mcconnell MD Primary Care Provider Immanuel JARAMILLO, [facility] Primary Care Provider CTAHY CONCEPCION Attending Unavailable GANTA, CLEMENTINA Primary Care Unavailable GANTA, CLEMENTINA Primary Care Unavailable MARY ACOSTA Referring Unavailable JOHN HANSEN Attending Unavailabl e GANTA, [facility] Primary Care Unavailable GANTA, CLEMENTINA Referring Unavailable GANTA, CLEMENTINA Primary Care Unavailable TRISTON MCCONNELL Primary Care Unavailable JOHN HANSEN Referring Unavailabl e JOHN HANSEN Attending Unavailabl e GANTA, CLEMENTINA Primary Care Unavailable GANTA, CLEMENTINA Primary Care Unavailable JOHN HANSEN Referring Unavailabl e GANTA, CLEMENTINA Primary Care Unavailable JOHN HANSEN Referring Unavailabl e Allergies Allergy Classification Reported Allergen(s) Allergy Type Date of Onset Reaction(s) Facility (16 sources) Adhesive Tape; Translations: [ADHESIVE TAPE (ROSINS)] Propensity to adverse reactions (disorder) 3 [facility] Repository (2 sources) Penicillins; Translations: [PENICILLINS] Propensity to adverse reactions (disorder) [facility]) Seasonal allergy; Translations: [SEASONAL ALLERGIES] Propensity to adverse reactions (disorder) 5 Other: See Comments [facility] Repository (16 sources) sulfamethoxazol e; Translations: [SULFAMETHOXAZO LE] Drug Allergy 1 Rash [facility] Repository (14 sources) Naproxen; Translations: [NAPROXEN] Drug Allergy 8 Other: See Comments [facility] (14 sources) Trimethoprim; Translations: [TRIMETHOPRIM] Drug Allergy 8 Other: See Comments, Unknown [facility] Medications Completed/Discontinued Medications Medication Drug Class(es) Dates Sig (Normalized) Sig (Original) calcium ascorbate 150 mg / calcium threonate 2 mg / ferrous asparto glycinate 70 mg / liver stomach concentrate 50 mg / succinic acid 75 mg / vitamin b12 0.01 mg oral tablet (13 sources) Vitamin B12 Start: 10-12-2020 take 1 tablet by mouth once daily iron [id number] c-Stoma (MULTIGEN,CHROMAGE N) 70 mg-150 mg-10 mcg-2 mg-75 mg tab Indications: Anemia, unspecified type Take 1 tablet by mouth once daily. 30 tablet 11 10/12/2020 Active Problems Active Problems Problem Classification Problem Date Documented Da te Episodic/Chronic Asthma (3 sources) Moderate persistent asthma, uncomplicated; Translations: [MOD PERSISTENT ASTHMA UN] Onset: 06-19-2017 Chronic Complications of surgical procedures or medical care (7 sources) History of subtotal thyroidectomy; Translations: [Postprocedural hypothyroidism] Onset: 07-30-2019 07-30-2019 Chronic Nutritional deficiencies (15 sources) Vitamin D deficiency; Translations: [Vitamin D deficiency, unspecified] Onset: 08-14-2014 08-14-2014 Chronic Other skin disorders (1 source) Eruption; Translations: [Rash and other nonspecific skin eruption] Episodic Thyroid disorders (20 sources) Hypothyroidism; Translations: [Hypothyroidism, unspecified] Onset: 08-14-2014 08-14-2014 Chronic Past or Other Problems Problem Classification Problem Date Documented Da te Episodic/Chronic Fracture of lower limb (7 sources) Trimalleolar fracture; Translations: [Displaced trimalleolar fracture of unspecified lower leg, initial encounter for closed fracture] Onset: 05-11-2019 05-11-2019 Episodic Nonmalignant breast conditions (2 sources) Pain of breast; Translations: [Mastodynia] Onset: 01-30-2023 Episodic Other bone disease and musculoskeletal deformities (8 sources) Osteopenia; Translations: [Other specified disorders of bone density and structure, left thigh] Onset: 01-05-2023 Episodic Other lower respiratory disease (3 sources) Solitary pulmonary nodule; Translations: [SOLITARY PULMONARY NODUL] Onset: 06-19-2017 Episodic Other nutritional; endocrine; and metabolic disorders (7 sources) Abnormal weight gain; Translations: [Abnormal weight gain] Onset: 02-12-2015 02-12-2015 Episodic Other screening for suspected conditions (not mental disorders or infectious disease) (5 sources) Patient encounter status; Translations: [Encounter for screening for malignant neoplasm of colon] Onset: 01-20-2023 Episodic Results Test Name Value Interpretation Reference Range Facil ity Vital Signs Date Time Vital Sign Value Performing Clinician Faci lity 07-31-2023 09:42-0400 Body height 154.9 cm John Hansen MD Work Phone: [facility] 07-31-2023 09:42-0400 Body weight 68.9 kg John Hansen MD Work Phone: [facility] 07-31-2023 09:42-0400 Diastolic blood pressure 78 mm[Hg] John Hansen MD Work Phone: [facility] 07-31-2023 09:42-0400 Heart rate 76 /min John Hansen MD Work Phone: [facility] 07-31-2023 09:42-0400 Respiratory rate 16 /min John Hansen MD Work Phone: [facility] 07-31-2023 09:42-0400 SaO2% (BldA) [Mass fraction] 99 % John Hansen MD Work Phone: [facility] 07-31-2023 09:42-0400 Systolic blood pressure 108 mm[Hg] John Hansen MD Work Phone: [facility] 01-30-2023 14:47-0400 Body height 154.9 cm Cathy Concepcion SINGER SONGWRITER.CUSTOMER ENGAGEMENT MANAGER Work Phone: [facility] 01-30-2023 14:47-0400 Body weight 68.95 kg Ctahy Concepcion SINGER SONGWRITER.CUSTOMER ENGAGEMENT MANAGER Work Phone: [facility] 01-30-2023 14:47-0400 Diastolic blood pressure 68 mm[Hg] Cathy Concepcion SINGER SONGWRITER.CUSTOMER ENGAGEMENT MANAGER Work Phone: [facility] 01-30-2023 14:47-0400 Systolic blood pressure 110 mm[Hg] Cathy Concepcion SINGER SONGWRITER.CUSTOMER ENGAGEMENT MANAGER Work Phone: [facility] 01-05-2023 09:52-0400 Body height 155.5 cm John Hansen MD Work Phone: [facility] 01-05-2023 09:52-0400 Body weight 71.12 kg John Hansen MD Work Phone: [facility] 01-05-2023 09:52-0400 Diastolic blood pressure 79 mm[Hg] John Hansen MD Work Phone: [facility] 01-05-2023 09:52-0400 Heart rate 66 /min John Hansen MD Work Phone: [facility] 01-05-2023 09:52-0400 SaO2% (BldA) [Mass fraction] 98 % John Hansen MD Work Phone: [facility] 01-05-2023 09:52-0400 Systolic blood pressure 135 mm[Hg] John Hansen MD Work Phone: [facility] 08-07-2022 09:43-0500 Body temperature 99 [degF] Katia Cancino SINGER SONGWRITER.CUSTOMER ENGAGEMENT MANAGER Work Phone: [facility] 08-07-2022 09:43-0500 Body weight 69.76 kg Katia Cancino SINGER SONGWRITER.CUSTOMER ENGAGEMENT MANAGER Work Phone: [facility] 08-07-2022 09:43-0500 Diastolic blood pressure 78 mm[Hg] Katia Cancino SINGER SONGWRITER.CUSTOMER ENGAGEMENT MANAGER Work Phone: [facility] 08-07-2022 09:43-0500 Heart rate 84 /min Katia Cancino SINGER SONGWRITER.CUSTOMER ENGAGEMENT MANAGER Work Phone: [facility] 08-07-2022 09:43-0500 Respiratory rate 18 /min Katia Cancino SINGER SONGWRITER.CUSTOMER ENGAGEMENT MANAGER Work Phone: [facility] 08-07-2022 09:43-0500 SaO2% (BldA) [Mass fraction] 98 % Katia Cancino SINGER SONGWRITER.CUSTOMER ENGAGEMENT MANAGER Work Phone: [facility] 08-07-2022 09:43-0500 Systolic blood pressure 130 mm[Hg] Katia Cancino SINGER SONGWRITER.CUSTOMER ENGAGEMENT MANAGER Work Phone: [facility] 12-27-2021 10:44-0400 Diastolic blood pressure 61 mm[Hg] Theresa Torres MD Work Phone: [facility] 12-27-2021 10:44-0400 Heart rate 75 /min Theresa Torres MD Work Phone: [facility] 12-27-2021 10:44-0400 Respiratory rate 16 /min Theresa Torres MD Work Phone: [facility] 12-27-2021 10:44-0400 SaO2% (BldA) [Mass fraction] 100 % Theresa Torres MD Work Phone: [facility] 12-27-2021 10:44-0400 Systolic blood pressure 104 mm[Hg] Theresa Torres MD Work Phone: [facility] 12-27-2021 09:32-0400 Body temperature 99.7 [degF] Theresa Torres MD Work Phone: [facility] 12-27-2021 09:32-0400 Body weight 69.9 kg Theresa Torres MD Work Phone: [facility] Encounters Encounter Date Encounter Type Care Provider Facility Start: 09-18-2023 End: 09-19-2023 ambulatory TRISTON MCCONNELL Facility:[facility] Start: 07-31-2023 End: 07-31-2023 ambulatory JOHN HANSEN Facility:[facility] Start: 07-31-2023 End: 07-31-2023 Patient encounter procedure John Hansen MD Work Phone: Endocrinology Procedures Date Procedure Procedure Detail Performing Clinician Start: 01-20-2023 End: 01-20-2023 Mammography Mary Older SINGER SONGWRITER.CUSTOMER ENGAGEMENT MANAGER Work Phone: Start: 06-12-2022 Lipid 1996 panel - S lindsay or Plasma John Hansen MD Work Phone: Start: 12-27-2021 Colonoscopy flx dx w /collj spec when pfrmd Jocy Older SINGER SONGWRITER.CUSTOMER ENGAGEMENT MANAGER Work Phone: Start: 12-27-2021 Colonoscopy Theresa Torres MD Work Phone: Start: 11-18-2021 Mammography Theresa Torres MD Work Phone: Start: 03-23-2021 Adult depression scr eening assessment Theresa Torres MD Work Phone: Plan of Treatment Date Care Activity Detail Author Start: 12-28-2031 Colonoscopy COLONOSCOPY [facility] Start: 12-28-2031 COLORECTAL CANCER SCREENING COLORECTAL CANCER SCREENING [facility] Start: 01-22-2028 Urine microalbumin profile [facility] Start: 06-12-2027 Lipid 1996 panel - Serum or Plasma Lipid Screening [facility] Start: 06-12-2027 LIPID SCREEN LIPID SCREEN [facility] Start: 03-30-2026 LIPID SCREEN LIPID SCREEN [facility] Start: 06-12-2025 DIABETES SCREEN DIABETES SCREEN [facility] Start: 06-12-2025 Diabetes Screening Diabetes Screening [facility] Start: 01-21-2024 Mammography [facility] Start: 09-11-2023 End: 12-11-2023 Thyrotropin [Units/volume] in Serum or Plasma TSH BLD Lab Routine Acquired hypothyroidism Expected: 09/11/2023, Expires: 12/11/2023 [facility] Work Phone: Immunizations Immunization Date Immunization Notes Care Provider Fa cility 06-01-2021 COVID-19 vaccine, fu ll dose (MODERNA) Theresa Torres MD Work Phone: [facility] 01-21-2018 tetanus toxoid, redu mily diphtheria toxoid, and acellular pertussis vaccine, adsorbed Theresa Torres MD Work Phone: [facility] Work Phone: Payers Date Payer Category Payer Medicare [id number] 2022 Private Health Insurance [employer] A ETNA MEDICARE SUPPLEMENT [id number] 2022-Present [phone] [address] [address] [place] [address] Indemnity [id number] 2021 Medicare MEDICARE MEDICAR E A AND B [id number] 2021-Present [phone] [place] [address] Medicare [id number] 2021 Medicare MEDICARE MEDICAR E A AND B [id number] 2021-Present [phone] [place] [address] Medicare [id number] 2021 Medicare [id number] 2021 Unknown [employer] CARD PPO OOS [id number] 2021-Present [phone] [address] [place] [address] PPO [id number] 2021 Unknown [employer] CARD PPO OOS [id number] 2021-Present [phone] [address] [place] [address] PPO [id number] Unknown [id number] Social History Date Type Detail Facility Start: 01-09-2011 End: 08-07-2022 Tobacco smoking status NHIS Never smoked tobacco [facility] Start: 01-09-2011 End: 08-07-2022 Tobacco use and exposure Smokeless tobacco non-user [facility] Start: 12-27-2021 End: 01-05-2023 Alcohol intake Current non-drinker of alcohol (finding) [facility] Start: 10-12-2020 End: 11-06-2021 History SDOH Alcohol Frequency 1 [facility] Start: 11-06-2021 History SDOH Social Connections Phone 5 [facility] Start: 11-06-2021 History SDOH Social Connections Get Together 3 [facility] Start: 11-06-2021 History SDOH Social Connections Membership 2 [facility] Start: 11-06-2021 History SDOH Social Connections Living 4 [facility] Start: 10-12-2020 Education 18 [facility] Start: 1955 Sex Assigned At Female [facility] Start: 12-17-2021 End: 08-13-2022 Exposure to SARS-CoV-2 (event) Not sure [facility] Work Phone: Start: 11-06-2021 End: 01-05-2023 History of Social function [facility] Start: 11-06-2021 End: 01-05-2023 Social connection and isolation panel [facility] Do you belong to any clubs or organizations such as nondenominational groups, unions, fraternal or athletic groups, or school groups? No [facility] Are you now , , , , never or living with a partner? [facility] How often to you hav e a drink containing alcohol? Never [facility] Average Number of Drinks Not on file [facility] Do you feel stress - tense, restless, nervous, or anxious, or unable to sleep at night because your mind is troubled all the time - these days [OSQ] Only a little [facility] (I/We) worried wheth er (my/our) food would run out before (I/we) got money to buy more. Never true [facility] Start: 12-25-2021 Gender identity Identifies as female gender (finding) [facility] Start: 01-13-2023 Sexual orientation Heterosexual (finding) [facility] Clinical Notes 10-05-2015 to 07-31-2023 Patient InstructionsJohn Hansen MD - 07/31/2023 9:40 AM EDTTelephone Encounter - Ashley Milan RN - 05/22/2023 1:25 PM Izzy ConcepcionSISSY bhat.CUSTOMER ENGAGEMENT MANAGER - 01/30/2023 2:44 PM EDT Note Date & Type Note Facility 07-31-2023 Note HNO ID: [id number] Author: John Hansen MD Service: ? Author Type: Physician Type: Progress Notes Filed: 07/31/2023 10:09 AM Note Text: Follow-up 67 year-old female, patient of Dr. Triston Mcconnell, with hypothyroidism. History of thyroidectomy in 2007, right total, left partial. Patient is not taking iron, calcium and/or multivitamin within 4 hours of the levothyroxine and patient is not missing any doses of levothyroxine. 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 History of CT scan with intravenous contrast within the last 4 months? No Uses generic levothyroxine (likes Alvogen). (+) constipation, hair loss, gravelly voice. Ultrasound by Dr. Raman in April 2016: - S/P left lobectomy. - Right thyroid lobe small and heterogeneous. - Benign right level II lymph nodes. Current Outpatient Medications on File Prior to Visit Medication Sig levothyroxine (SYNTHROID) 100 mcg tablet Take 1 tablet by mouth once daily. Take only 1/2 pill on Sundays. iron [id number] (MULTIGEN,CHROMAGEN) 70 mg-150 mg-10 mcg-2 mg-75 mg tab Take 1 tablet by mouth once daily. (Patient taking differently: Take 1 tablet by mouth as needed.) triamcinolone acetonide (NASACORT AQ) 55 mcg nasal inhaler Use 2 Sprays in the nose once daily. fluticasone-vilanterol (BREO ELLIPTA) 100-25 mcg/dose inhaler Inhale 1 Inhalation as instructed once daily. (Patient taking differently: Inhale 1 Inhalation as instructed as needed.) Olopatadine 0.2 % drop Use 1 Drop in both eyes once daily. Cholecalciferol, Vitamin D3, (VITAMIN D) 1,000 unit cap Take 3 capsules by mouth once daily. CETIRIZINE HCL (ZYRTEC ORAL) Take 0.5 tablets by mouth as needed. ALLERGIES Allergen Reactions Adhesive Tape (Pricilla* Hives Hives as big as welts. Bactrim [Sulfametho* Rash Naproxen Other: See Comments Seasonal Allergies Other: See Comments Itchy eyes and skin Trimethoprim Other: See Comments, Unknown PAST MEDICAL HISTORY Diagnosis Date Arthritis Asthma Bronchitis Chest pain Connective tissue disease (HCC) Delayed emergence from general anesthesia H/O partial thyroidectomy 07/30/2019 Hyperlipidemia Hypothyroid Hypothyroidism Nontoxic single thyroid nodule 05/09/2016 Pulmonary nodule Thyroid nodule Trimalleolar fracture 05/11/2019 PAST SURGICAL HISTORY Procedure Laterality Date ABDOMINAL SURGERY HX COLONOSCOPY 12/27/2021 repeat in 10 years COLONOSCOPY FLX DX W/COLLJ SPEC WHEN PFRMD 10/05/2015 Colonoscopy 5 yr interval FRACTURE SURGERY MYOMECTOMY 1-4 MYOMAS W/250 GM/< ABDOMINAL APPR 1982 PARTIAL THYROIDECTOMY W/CONTRALATERAL SUBT FAMILY HISTORY Problem Relation Age of Onset Stroke Mother brainstem age 50 years of age Cataract Mother Diabetes Father Cataract Father Ischemic Heart Disease Father No Family History Sister Cancer Brother larynx other (lupus) Maternal Aunt 40 Ischemic Heart Disease Paternal Aunt 75 Ischemic Heart Disease Paternal Aunt 81 Social History Tobacco Use Smoking status: Never Smokeless tobacco: Never Vaping Use Vaping Use: Never used Substance Use Topics Alcohol use: No Drug use: No Answers submitted by the patient for this visit: Core Review of Systems (Submitted on 07/29/2023) Fever : No Night sweats: No Recent unintentional weight change: Yes Nasal Congestion: No Hearing Loss: No Vision Disturbance: No A cough: No Difficulty Breathing?: No Chest pain: No Irregular heartbeat: No Leg Swelling: No Nausea: No Diarrhea: No Black tarry stools: No Difficulty Urinating?: No Awaken at Night More Than Once to Urinate?: No Joint pain or stiffness: No Muscle aches: No Leg or Foot Discomfort at Night?: No A rash: No Dizziness: No Headaches: No Memory Loss: No Seizures: No BP 108/78 Pulse 76 Resp 16 Ht 154.9 cm (5' 1 ) Wt 68.9 kg (151 lb 14.4 oz) SpO2 99% BMI 28.70 kg/m? General appearance: Well-appearing, overweight (BMI greater than 25) female, alert, in no acute distress, well-hydrated, well nourished. Weight down 5 pounds since 12/2022. BP normal. Skin: Skin color, texture, turgor normal, no suspicious rashes or lesions Head: normocephalic, no masses, lesions, tenderness or abnormalities Eyes: Anicteric sclera. Pupils are equally round. Extraocular movements are intact. Ears: not examined Nose/Sinuses: Nares normal. No drainage or sinus tenderness. Oropharynx: Lips, mucosa, and tongue normal, teeth and gums not examined. Neck: Supple, no adenopathy; no palpable thyroid enlargement. Lungs: Breathing unlabored. Heart: RRR. No ectopy Abdomen: deferred Extremities: No deformities, edema, skin discoloration, clubbing or cyanosis. Good capillary refill. Musculoskeletal: Spine range of motion not tested. Muscular strength intact, No joint swelling, deformity, or tenderness Neuro: Gait normal. Sensation grossly intact. Latest Reference Range AND Units (more content not included)... [facility] 07-31-2023 Instructions John Hansen MD - 07/31/2023 9:55 AM EDT Decrease levothyroxine to 0.1 mg every day, no pill on Sundays Repeat blood test again on or after 09/11/2023 - will call with results See me again in 12 months. documented in this encounter [facility] 07-31-2023 History of Presen t illness Narrative Follow-up 67 year-old female, patient of Dr. Triston Mcconnell, with hypothyroidism. History of thyroidectomy in 2007, right total, left partial. Patient is not taking iron, calcium and/or multivitamin within 4 hours of the levothyroxine and patient is not missing any doses of levothyroxine. 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 History of CT scan with intravenous contrast within the last 4 months? No Uses generic levothyroxine (likes Alvogen). (+) constipation, hair loss, gravelly voice. Ultrasound by Dr. Raman in April 2016: - S/P left lobectomy. - Right thyroid lobe small and heterogeneous. - Benign right level II lymph nodes. Current Outpatient Medications on File Prior to Visit Medication Sig levothyroxine (SYNTHROID) 100 mcg tablet Take 1 tablet by mouth once daily. Take only 1/2 pill on Sundays. iron [id number] (MULTIGEN,CHROMAGEN) 70 mg-150 mg-10 mcg-2 mg-75 mg tab Take 1 tablet by mouth once daily. (Patient taking differently: Take 1 tablet by mouth as needed.) triamcinolone acetonide (NASACORT AQ) 55 mcg nasal inhaler Use 2 Sprays in the nose once daily. fluticasone-vilanterol (BREO ELLIPTA) 100-25 mcg/dose inhaler Inhale 1 Inhalation as instructed once daily. (Patient taking differently: Inhale 1 Inhalation as instructed as needed.) Olopatadine 0.2 % drop Use 1 Drop in both eyes once daily. Cholecalciferol, Vitamin D3, (VITAMIN D) 1,000 unit cap Take 3 capsules by mouth once daily. CETIRIZINE HCL (ZYRTEC ORAL) Take 0.5 tablets by mouth as needed. ALLERGIES Allergen Reactions Adhesive Tape (Pricilla* Hives Hives as big as welts. Bactrim [Sulfametho* Rash Naproxen Other: See Comments Seasonal Allergies Other: See Comments Itchy eyes and skin Trimethoprim Other: See Comments, Unknown PAST MEDICAL HISTORY Diagnosis Date Arthritis Asthma Bronchitis Chest pain Connective tissue disease (HCC) Delayed emergence from general anesthesia H/O partial thyroidectomy 07/30/2019 Hyperlipidemia Hypothyroid Hypothyroidism Nontoxic single thyroid nodule 05/09/2016 Pulmonary nodule Thyroid nodule Trimalleolar fracture 05/11/2019 PAST SURGICAL HISTORY Procedure Laterality Date ABDOMINAL SURGERY HX COLONOSCOPY 12/27/2021 repeat in 10 years COLONOSCOPY FLX DX W/COLLJ SPEC WHEN PFRMD 10/05/2015 Colonoscopy 5 yr interval FRACTURE SURGERY MYOMECTOMY 1-4 MYOMAS W/250 GM/< ABDOMINAL APPR 1982 PARTIAL THYROIDECTOMY W/CONTRALATERAL SUBT FAMILY HISTORY Problem Relation Age of Onset Stroke Mother brainstem age 50 years of age Cataract Mother Diabetes Father Cataract Father Ischemic Heart Disease Father No Family History Sister Cancer Brother larynx other (lupus) Maternal Aunt 40 Ischemic Heart Disease Paternal Aunt 75 Ischemic Heart Disease Paternal Aunt 81 Social History Tobacco Use Smoking status: Never Smokeless tobacco: Never Vaping Use Vaping Use: Never used Substance Use Topics Alcohol use: No Drug use: No Answers submitted by the patient for this visit: Core Review of Systems (Submitted on 07/29/2023) Fever : No Night sweats: No Recent unintentional weight change: Yes Nasal Congestion: No Hearing Loss: No Vision Disturbance: No A cough: No Difficulty Breathing?: No Chest pain: No Irregular heartbeat: No Leg Swelling: No Nausea: No Diarrhea: No Black tarry stools: No Difficulty Urinating?: No Awaken at Night More Than Once to Urinate?: No Joint pain or stiffness: No Muscle aches: No Leg or Foot Discomfort at Night?: No A rash: No Dizziness: No Headaches: No Memory Loss: No Seizures: No BP 108/78 Pulse 76 Resp 16 Ht 154.9 cm (5' 1 ) Wt 68.9 kg (151 lb 14.4 oz) SpO2 99% BMI 28.70 kg/m General appearance: Well-appearing, overweight (BMI greater than 25) female, alert, in no acute distress, well-hydrated, well nourished. Weight down 5 pounds since 12/2022. BP normal. Skin: Skin color, texture, turgor normal, no suspicious rashes or lesions Head: normocephalic, no masses, lesions, tenderness or abnormalities Eyes: Anicteric sclera. Pupils are equally round. Extraocular movements are intact. Ears: not examined Nose/Sinuses: Nares normal. No drainage or sinus tenderness. Oropharynx: Lips, mucosa, and tongue normal, teeth and gums not examined. Neck: Supple, no adenopathy; no palpable thyroid enlargement. Lungs: Breathing unlabored. Heart: RRR. No ectopy Abdomen: deferred Extremities: No deformities, edema, skin discoloration, clubbing or cyanosis. Good capillary refill. Musculoskeletal: Spine range of motion not tested. Muscular strength intact, No joint swelling, deformity, or tenderness Neuro: Gait normal. Sensation grossly intact. Latest Reference Range & Units 07/30/23 12:27 Free T4 0.9 - 1.7 ng/dL 1.9 (H) TSH 0.270 - 4.200 mIU/L 0.054 (L) (H): Data is abnormally high (L): Data is abnormally low Latest Reference Range & Units 10/24/22 13:59 Free T4 0.9 - 1.7 ng/dL 1.5 TSH 0.270 - 4.200 mIU/L 0.294 T3 79 - 165 ng/dL 105 IMPRESSION: Hypothyroidism - needs lower levothyroxine dose Osteopenia - mild, repeat bone density test in 2023 Vitamin D deficiency - continue daily supplement PLAN: Decrease levothyroxine to 0.1 mg every day, no pill on Sundays Repeat blood test again on or after 09/11/2023 Consider DXA axial skeleton again in 2023 See me again in one year, sooner if needed Continue with Dr. Mcconnell for regular health care needs John Hansen MD I spent a total of 30 minutes on the date of service which included preparing to see the patient, [id number] patient care, completing clinical documentation, performing a medically appropriate examination, counseling and educating the patient/family/caregiver and ordering medications, tests, or procedures. documented in this encounter [facility] 05-22-2023 Miscellaneous Notes Notified patient of Dr Hansen's message. Patient verbalized understanding and all questions were answered. Encounter closed. Thyroid labs ordered. Patient called and left a VM on nurses line, state's she feels her thyroid levels are off and she would like to have her labs drawn. She uses [facility]. Please review and place lab orders if agreeable. documented in this encounter [facility] 01-30-2023 Note HNO ID: [id number] Author: Cathy Concepcion APRN.CUSTOMER ENGAGEMENT MANAGER Service: ? Author Type: Nurse Practitioner Type: Progress Notes Filed: 01/30/2023 4:48 PM Note Text: Patrol Guard offered: Patient declines. Jocy is a 67 year old who presents for an annual gynecologic exam also has tenderness right breast for a few years but more so in the past 8 months. She has discussed with mammogram tech and mammogram is normal.. Postmenopausal: Yes since age mid-30s HRT use: Yes, oral How long: several years. Last Pap: 07/11/2020 normal HPV: 07/07/2020 negative History of abnormal pap: Yes Last mammogram: 2022 normal History of abnormal mammogram: Yes , calcifications, fibroglandular tissie Sexually active: No Documentation from previous visit of 08/21/2021 was copied and pasted, documentation has been reviewed and edited as necessary for today's visit. OB History T0 L0 SAB1 IAB0 Ectopic0 Multiple0 Live Births0 Blood Donor Unit Assistant History LMP: Postmenopausal Age at Menarche: Age at First : Age at Menopause: Blood Donor Unit Assistant History Comments: Sexual Activity: Not Currently; No partner data on record Contraception: No contraception data on record PAST MEDICAL HISTORY Diagnosis Date Arthritis Asthma Bronchitis Chest pain Connective tissue disease (HCC) Delayed emergence from general anesthesia H/O partial thyroidectomy 07/30/2019 Hyperlipidemia Hypothyroid Hypothyroidism Nontoxic single thyroid nodule 05/09/2016 Pulmonary nodule Thyroid nodule Trimalleolar fracture 05/11/2019 PAST SURGICAL HISTORY Procedure Laterality Date ABDOMINAL SURGERY HX COLONOSCOPY 12/27/2021 repeat in 10 years COLONOSCOPY FLX DX W/COLLJ SPEC WHEN PFRMD 10/05/2015 Colonoscopy 5 yr interval FRACTURE SURGERY MYOMECTOMY 1-4 MYOMAS W/250 GM/< ABDOMINAL APPR 1982 PARTIAL THYROIDECTOMY W/CONTRALATERAL SUBT FAMILY HISTORY Problem Relation Age of Onset Stroke Mother brainstem age 50 years of age Cataract Mother Diabetes Father Cataract Father Ischemic Heart Disease Father No Family History Sister Ischemic Heart Disease Paternal Aunt 75 Ischemic Heart Disease Paternal Aunt 81 other (lupus) Maternal Aunt 40 SOCIAL HISTORY Social History Tobacco Use Smoking status: Never Smokeless tobacco: Never Vaping Use Vaping Use: Never used Substance Use Topics Alcohol use: No Drug use: No REVIEW OF SYSTEMS Abdomen: No abdominal pain, nausea, vomiting, diarrhea, or constipation. No bloating, early satiety, indigestion, or increased flatulence. Bladder: No dysuria, gross hematuria, urinary frequency, urinary urgency, or incontinence Breast: See HPI - long-term tenderness right breast. No breast lumps, nipple d/c, overlying skin changes, redness or skin retraction Allergies and current medication updated:Yes EXAM: BP 110/68 Ht 5' 1 (1.55m) Wt 152 lb (68.9kg) BMI 28.74 kg/(m2). GENERAL: pleasant, female in no apparent distress HEENT: Normocephalic, atraumatic, mucus membranes moist, and no lesions NECK: Supple, full range of motion, no adenopathy, and thyroid normal DERMATOLOGY: Normal, without lesions, non-icteric, and non-hirsute BREAST: soft, non-tender, symmetric, no dominant mass, normal nipple-areolar complex, no lymphadenopathy, and no nipple discharge CHEST: Normal inspiratory effort ABDOMEN: soft, non-tender, and no masses PELVIC: external genitalia normal, normal Bartholin's glands, urethra, Tysons's glands, no vulvar lesions, no cervical lesions, physiologic discharge present, normal appearing perineal body and perianal region BIMANUAL: uterus normal size, shape and consistency, no adnexal masses, and non-tender RECTOVAGINAL: deferred. NEURO: alert and oriented x3,exam grossly non-focal EXTREMITIES: normal ASSESSMENT/PLAN: 1) Health maintenance: Pap/HPV screening no longer needed Mammogram ordered Mammogram up to date Nutrition, exercise and routine health maintenance exams reviewed. Calcium/Vitamin D supplementation information provided. Colon cancer screening: up to date with screening BMD: up to date 2. Mastalgia - ICD9: 611.71, ICD10: N64.4 - chronic - Normal mammogram 01/20/2023 3) Follow up one year or sooner as needed Cathy Concepcion APRN.[facility] 01-30-2023 History of Presen t illness Narrative Patrol Guard offered: Patient declines. Jocy is a 67 year old who presents for an annual gynecologic exam also has tenderness right breast for a few years but more so in the past 8 months. She has discussed with mammogram tech and mammogram is normal.. Postmenopausal: Yes since age mid-30s HRT use: Yes, oral How long: several years. Last Pap: 07/11/2020 normal HPV: 07/07/2020 negative History of abnormal pap: Yes Last mammogram: 2022 normal History of abnormal mammogram: Yes , calcifications, fibroglandular tissie Sexually active: No Documentation from previous visit of 08/21/2021 was copied and pasted, documentation has been reviewed and edited as necessary for today's visit. OB History T0 L0 SAB1 IAB0 Ectopic0 Multiple0 Live Births0 Blood Donor Unit Assistant History LMP: Postmenopausal Age at Menarche: Age at First : Age at Menopause: Blood Donor Unit Assistant History Comments: Sexual Activity: Not Currently; No partner data on record Contraception: No contraception data on record PAST MEDICAL HISTORY Diagnosis Date Arthritis Asthma Bronchitis Chest pain Connective tissue disease (HCC) Delayed emergence from general anesthesia H/O partial thyroidectomy 07/30/2019 Hyperlipidemia Hypothyroid Hypothyroidism Nontoxic single thyroid nodule 05/09/2016 Pulmonary nodule Thyroid nodule Trimalleolar fracture 05/11/2019 PAST SURGICAL HISTORY Procedure Laterality Date ABDOMINAL SURGERY HX COLONOSCOPY 12/27/2021 repeat in 10 years COLONOSCOPY FLX DX W/COLLJ SPEC WHEN PFRMD 10/05/2015 Colonoscopy 5 yr interval FRACTURE SURGERY MYOMECTOMY 1-4 MYOMAS W/250 GM/< ABDOMINAL APPR 1982 PARTIAL THYROIDECTOMY W/CONTRALATERAL SUBT FAMILY HISTORY Problem Relation Age of Onset Stroke Mother brainstem age 50 years of age Cataract Mother Diabetes Father Cataract Father Ischemic Heart Disease Father No Family History Sister Ischemic Heart Disease Paternal Aunt 75 Ischemic Heart Disease Paternal Aunt 81 other (lupus) Maternal Aunt 40 SOCIAL HISTORY Social History Tobacco Use Smoking status: Never Smokeless tobacco: Never Vaping Use Vaping Use: Never used Substance Use Topics Alcohol use: No Drug use: No REVIEW OF SYSTEMS Abdomen: No abdominal pain, nausea, vomiting, diarrhea, or constipation. No bloating, early satiety, indigestion, or increased flatulence. Bladder: No dysuria, gross hematuria, urinary frequency, urinary urgency, or incontinence Breast: See HPI - long-term tenderness right breast. No breast lumps, nipple d/c, overlying skin changes, redness or skin retraction Allergies and current medication updated:Yes EXAM: BP 110/68 Ht 5' 1 (1.55m) Wt 152 lb (68.9kg) BMI 28.74 kg/(m^2). GENERAL: pleasant, female in no apparent distress HEENT: Normocephalic, atraumatic, mucus membranes moist, and no lesions NECK: Supple, full range of motion, no adenopathy, and thyroid normal DERMATOLOGY: Normal, without lesions, non-icteric, and non-hirsute BREAST: soft, non-tender, symmetric, no dominant mass, normal nipple-areolar complex, no lymphadenopathy, and no nipple discharge CHEST: Normal inspiratory effort ABDOMEN: soft, non-tender, and no masses PELVIC: external genitalia normal, normal Bartholin's glands, urethra, Tysons's glands, no vulvar lesions, no cervical lesions, physiologic discharge present, normal appearing perineal body and perianal region BIMANUAL: uterus normal size, shape and consistency, no adnexal masses, and non-tender RECTOVAGINAL: deferred. NEURO: alert and oriented x3,exam grossly non-focal EXTREMITIES: normal ASSESSMENT/PLAN: 1) Health maintenance: Pap/HPV screening no longer needed Mammogram ordered Mammogram up to date Nutrition, exercise and routine health maintenance exams reviewed. Calcium/Vitamin D supplementation information provided. Colon cancer screening: up to date with screening BMD: up to date 2. Mastalgia - ICD9: 611.71, ICD10: N64.4 - chronic - Normal mammogram 01/20/2023 3) Follow up one year or sooner as needed Cathy Concepcion APRN.CUSTOMER ENGAGEMENT MANAGER documented in this encounter [facility] 01-21-2023 Miscellaneous Notes January 22, 2023 PID: [id number] Anastasia Huntley [address] [facility] [address] [place] [address] Dear Ms. Huntley, We are pleased to inform you that the results of your recent breast imaging exam on 01/20/2023 are normal. Early detection of cancer is very important. We also understand recommendations regarding breast cancer screening are controversial. Please discuss with your primary care provider which strategy is best for you and whether a mammogram is right for you. Your imaging studies and report will be kept on file at [facility] as part of your permanent medical record and are available for your continuing care. Thank you for allowing us to help in meeting your health care needs. Sincerely, Dr. Morris Interpreting Radiologist [facility] (Normal over 40) documented in this encounter [facility] 01-20-2023 Note HNO ID: [id number] Author: STACY Allen) Service: ? Author Type: Technologist Type: Progress Notes Filed: 01/20/2023 1:58 PM Note Text: Radiology Service Progress Note PATIENT NAME: Anastasia Huntley DATE OF SERVICE: January 20, 2023 TIME: 1:58 PM PATIENT IDENTITY VERIFICATION COMPLETED USING TWO (2) IDENTIFIERS: Name and Date of confirmed by patient verbally. FALL SCREENING: Has the patient had 2 falls in the last year or 1 fall with injury or currently using an Ambulatory Assistive Device (Walker, Cane, Wheelchair, Crutches, etc.)? No PATIENT GENDER DATA: Female. status: : No status: NO. PATIENT RELEVANT IMPLANT DATA REVIEWED: Not Applicable RADIOLOGY DEPARTMENT: Mammography PERIPHERAL IV DATA: Not applicable SIGNED BY: RT Alejandro(Geovanna) January 20, 2023 1:58 PM [facility] 01-20-2023 History of Presen t illness Narrative Radiology Service Progress Note PATIENT NAME: Anastasia Huntley DATE OF SERVICE: January 20, 2023 TIME: 1:58 PM PATIENT IDENTITY VERIFICATION COMPLETED USING TWO (2) IDENTIFIERS: Name and Date of confirmed by patient verbally. FALL SCREENING: Has the patient had 2 falls in the last year or 1 fall with injury or currently using an Ambulatory Assistive Device (Walker, Cane, Wheelchair, Crutches, etc.)? No PATIENT GENDER DATA: Female. status: : No status: NO. PATIENT RELEVANT IMPLANT DATA REVIEWED: Not Applicable RADIOLOGY DEPARTMENT: Mammography PERIPHERAL IV DATA: Not applicable SIGNED BY: RT Alejandro(Geovanna) January 20, 2023 1:58 PM documented in this encounter [facility] 01-05-2023 Note HNO ID: [id number] Author: John Hansen MD Service: ? Author Type: Physician Type: Progress Notes Filed: 01/05/2023 10:28 AM Note Text: Follow-up 67 year-old female, patient of Dr. Clementina Mccloud, regarding hypothyroidism. Previously followed by Dr. Miguel Raman. History of thyroidectomy in 2007, right total, left partial. Patient is not taking iron, calcium and/or multivitamin within 4 hours of the levothyroxin and patient is not missing any doses of levothyroxine. 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 History of CT scan with intravenous contrast within the last 4 months? No Uses generic levothyroxine (likes Alvogen). Ultrasound by Dr. Raman in April 2016: - S/P left lobectomy. - Right thyroid lobe small and heterogeneous. - Benign right level II lymph nodes. Current Outpatient Medications on File Prior to Visit Medication Sig levothyroxine (SYNTHROID) 100 mcg tablet Take half a pill every Thursday. Take one pill the other days of the week. iron [id number] (MULTIGEN,CHROMAGEN) 70 mg-150 mg-10 mcg-2 mg-75 mg tab Take 1 tablet by mouth once daily. triamcinolone acetonide (NASACORT AQ) 55 mcg nasal inhaler Use 2 Sprays in the nose once daily. fluticasone-vilanterol (BREO ELLIPTA) 100-25 mcg/dose inhaler Inhale 1 Inhalation as instructed once daily. Olopatadine 0.2 % drop Use 1 Drop in both eyes once daily. Cholecalciferol, Vitamin D3, (VITAMIN D) 1,000 unit cap Take 3 capsules by mouth once daily. CETIRIZINE HCL (ZYRTEC ORAL) Take 0.5 tablets by mouth as needed. ALLERGIES Allergen Reactions Adhesive Tape (Pricilla* Hives Hives as big as welts. Bactrim [Sulfametho* Rash Naproxen Other: See Comments Seasonal Allergies Other: See Comments Itchy eyes and skin Trimethoprim Other: See Comments, Unknown PAST MEDICAL HISTORY Diagnosis Date Arthritis Asthma Bronchitis Chest pain Connective tissue disease (HCC) Delayed emergence from general anesthesia Hyperlipidemia Hypothyroid Hypothyroidism Pulmonary nodule Thyroid nodule PAST SURGICAL HISTORY Procedure Laterality Date ABDOMINAL SURGERY HX COLONOSCOPY 12/27/2021 repeat in 10 years COLONOSCOPY FLX DX W/COLLJ SPEC WHEN PFRMD 10/05/2015 Colonoscopy 5 yr interval FRACTURE SURGERY MYOMECTOMY 1-4 MYOMAS W/250 GM/< ABDOMINAL APPR 1982 PARTIAL THYROIDECTOMY W/CONTRALATERAL SUBT FAMILY HISTORY Problem Relation Age of Onset Stroke Mother brainstem age 50 years of age Cataract Mother Diabetes Father Cataract Father Ischemic Heart Disease Father No Family History Sister Ischemic Heart Disease Paternal Aunt 75 Ischemic Heart Disease Paternal Aunt 81 other (lupus) Maternal Aunt 40 Social History Tobacco Use Smoking status: Never Smokeless tobacco: Never Vaping Use Vaping Use: Never used Substance Use Topics Alcohol use: No Drug use: No Answers submitted by the patient for this visit: Endocrine Review of Systems (Submitted on 01/04/2023) Fatigue: Yes Night Sweats: No Recent Unintentional Weight Change: No Skin Color Changes: No Post-Nasal Drip: No Thyroid Pain (lower neck): No Trouble Swallowing: No Vision Disturbance: Yes Chest Pain: No Leg Swelling: No Blood Clots?: No Leg Pain while walking?: No Difficulty Breathing?: No Heartburn: No Nausea: No Vomiting?: No Diarrhea: No Constipation: Yes Abdominal Pain: No Bone Pain?: No Muscle Aches: No Muscle Weakness: No Joint Pain or Stiffness: No Headaches: No Dizziness: No Numbness?: No Urgency to Urinate?: No Increased Urination?: No Slow or Small Urine Stream?: No Have your menstrual cycles stopped?: Yes Flushing?: No Hot Flashes?: No Increased Thirst: No Change in Body Hair?: No Cold Intolerance: Yes Heat Intolerance?: No BP 135/79 Pulse 66 Ht 155.5 cm (5' 1.22 ) Wt 71.1 kg (156 lb 12.8 oz) SpO2 98% BMI 29.41 kg/m? General appearance: Well-appearing, overweight (BMI greater than 25) female, alert, in no acute distress, well-hydrated, well nourished. Skin: Skin color, texture, turgor normal, no suspicious rashes or lesions Head: normocephalic, no masses, lesions, tenderness or abnormalities Eyes: Anicteric sclera. Pupils are equally round. Extraocular movements are intact. Ears: not examined Nose/Sinuses: Nares normal. No drainage or sinus tenderness. Oropharynx: Lips, mucosa, and tongue normal, teeth and gums not examined. Neck: Supple, no adenopathy; no palpable thyroid enlargement. Lungs: Breathing unlabored. Heart: RRR. No ectopy Abdomen: deferred Extremities: No deformities, edema, skin discoloration, clubbing or cyanosis. Good capillary refill. Musculoskeletal: Spine range of motion not tested. Muscular strength intact, No joint swelling, deformity, or tenderness Neuro: Gait normal. Sensation grossly intact. Latest Reference Range AND Units 06/12/22 12:06 Sodium 136 - 144 mmol/L 135 (L) Potassium (more content not included)... [facility] 01-05-2023 Instructions John Hansen MD - 01/05/2023 10:13 AM EDT Continue current levothyroxine dose. Continue weight loss efforts. See me again in one year. Aim for bone density test again in 11/2023. documented in this encounter [facility] 01-05-2023 History of Presen t illness Narrative Follow-up 67 year-old female, patient of Dr. Clementina Mccloud, regarding hypothyroidism. Previously followed by Dr. Miguel Raman. History of thyroidectomy in 2007, right total, left partial. Patient is not taking iron, calcium and/or multivitamin within 4 hours of the levothyroxin and patient is not missing any doses of levothyroxine. 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 History of CT scan with intravenous contrast within the last 4 months? No Uses generic levothyroxine (likes Alvogen). Ultrasound by Dr. Raman in April 2016: - S/P left lobectomy. - Right thyroid lobe small and heterogeneous. - Benign right level II lymph nodes. Current Outpatient Medications on File Prior to Visit Medication Sig levothyroxine (SYNTHROID) 100 mcg tablet Take half a pill every Thursday. Take one pill the other days of the week. iron [id number] (MULTIGEN,CHROMAGEN) 70 mg-150 mg-10 mcg-2 mg-75 mg tab Take 1 tablet by mouth once daily. triamcinolone acetonide (NASACORT AQ) 55 mcg nasal inhaler Use 2 Sprays in the nose once daily. fluticasone-vilanterol (BREO ELLIPTA) 100-25 mcg/dose inhaler Inhale 1 Inhalation as instructed once daily. Olopatadine 0.2 % drop Use 1 Drop in both eyes once daily. Cholecalciferol, Vitamin D3, (VITAMIN D) 1,000 unit cap Take 3 capsules by mouth once daily. CETIRIZINE HCL (ZYRTEC ORAL) Take 0.5 tablets by mouth as needed. ALLERGIES Allergen Reactions Adhesive Tape (Pricilla* Hives Hives as big as welts. Bactrim [Sulfametho* Rash Naproxen Other: See Comments Seasonal Allergies Other: See Comments Itchy eyes and skin Trimethoprim Other: See Comments, Unknown PAST MEDICAL HISTORY Diagnosis Date Arthritis Asthma Bronchitis Chest pain Connective tissue disease (HCC) Delayed emergence from general anesthesia Hyperlipidemia Hypothyroid Hypothyroidism Pulmonary nodule Thyroid nodule PAST SURGICAL HISTORY Procedure Laterality Date ABDOMINAL SURGERY HX COLONOSCOPY 12/27/2021 repeat in 10 years COLONOSCOPY FLX DX W/COLLJ SPEC WHEN PFRMD 10/05/2015 Colonoscopy 5 yr interval FRACTURE SURGERY MYOMECTOMY 1-4 MYOMAS W/250 GM/< ABDOMINAL APPR 1982 PARTIAL THYROIDECTOMY W/CONTRALATERAL SUBT FAMILY HISTORY Problem Relation Age of Onset Stroke Mother brainstem age 50 years of age Cataract Mother Diabetes Father Cataract Father Ischemic Heart Disease Father No Family History Sister Ischemic Heart Disease Paternal Aunt 75 Ischemic Heart Disease Paternal Aunt 81 other (lupus) Maternal Aunt 40 Social History Tobacco Use Smoking status: Never Smokeless tobacco: Never Vaping Use Vaping Use: Never used Substance Use Topics Alcohol use: No Drug use: No Answers submitted by the patient for this visit: Endocrine Review of Systems (Submitted on 01/04/2023) Fatigue: Yes Night Sweats: No Recent Unintentional Weight Change: No Skin Color Changes: No Post-Nasal Drip: No Thyroid Pain (lower neck): No Trouble Swallowing: No Vision Disturbance: Yes Chest Pain: No Leg Swelling: No Blood Clots?: No Leg Pain while walking?: No Difficulty Breathing?: No Heartburn: No Nausea: No Vomiting?: No Diarrhea: No Constipation: Yes Abdominal Pain: No Bone Pain?: No Muscle Aches: No Muscle Weakness: No Joint Pain or Stiffness: No Headaches: No Dizziness: No Numbness?: No Urgency to Urinate?: No Increased Urination?: No Slow or Small Urine Stream?: No Have your menstrual cycles stopped?: Yes Flushing?: No Hot Flashes?: No Increased Thirst: No Change in Body Hair?: No Cold Intolerance: Yes Heat Intolerance?: No BP 135/79 Pulse 66 Ht 155.5 cm (5' 1.22 ) Wt 71.1 kg (156 lb 12.8 oz) SpO2 98% BMI 29.41 kg/m General appearance: Well-appearing, overweight (BMI greater than 25) female, alert, in no acute distress, well-hydrated, well nourished. Skin: Skin color, texture, turgor normal, no suspicious rashes or lesions Head: normocephalic, no masses, lesions, tenderness or abnormalities Eyes: Anicteric sclera. Pupils are equally round. Extraocular movements are intact. Ears: not examined Nose/Sinuses: Nares normal. No drainage or sinus tenderness. Oropharynx: Lips, mucosa, and tongue normal, teeth and gums not examined. Neck: Supple, no adenopathy; no palpable thyroid enlargement. Lungs: Breathing unlabored. Heart: RRR. No ectopy Abdomen: deferred Extremities: No deformities, edema, skin discoloration, clubbing or cyanosis. Good capillary refill. Musculoskeletal: Spine range of motion not tested. Muscular strength intact, No joint swelling, deformity, or tenderness Neuro: Gait normal. Sensation grossly intact. Latest Reference Range & Units 06/12/22 12:06 Sodium 136 - 144 mmol/L 135 (L) Potassium 3.7 - 5.1 mmol/L 3.8 Chloride 97 - 105 mmol/L 100 CO2 22 - 30 mmol/L 23 BUN 7 - 21 mg/dL 13 Creatinine 0.58 - 0.96 mg/dL 0.82 Glucose 74 - 99 mg/dL 84 Calcium 8.5 - 10.2 mg/dL 9.6 Anion Gap 9 - 18 mmol/L 12 eGFR >=60 mL/min/1.73m 79 Cholesterol, Total <200 mg/dL 194 Triglyceride <150 mg/dL 55 HDL Cholesterol >39 mg/dL 68 LDL Cholesterol <100 mg/dL 115 (H) TSH 0.270 - 4.200 mIU/L 0.062 (L) (L): Data is abnormally low (H): Data is abnormally high Latest Reference Range & Units 10/24/22 13:59 Free T4 0.9 - 1.7 ng/dL 1.5 TSH 0.270 - 4.200 mIU/L 0.294 T3 79 - 165 ng/dL 105 IMPRESSION: Hypothyroidism - continue the current levothyroxine dose Osteopenia - mild, repeat bone density test in 11/2023 Vitamin D deficiency - continue daily supplement PLAN: Continue current levothyroxine dose Consider DXA axial skeleton again in 11/2023 See me again in one year, sooner if needed Continue with Dr. Mccloud for regular health care needs John Hansen MD I spent a total of 30 minutes on the date of service which included preparing to see the patient, [id number] patient care, completing clinical documentation, performing a medically appropriate examination, counseling and educating the patient/family/caregiver and ordering medications, tests, or procedures. documented in this encounter [facility] 10-23-2022 Miscellaneous Notes Spoke with patient. Given message from provider's office. Patient verbalizes understanding. Chacha Ovalle RN Labs placed Regards, Clementina Mccloud MD Pt called I and reports she can't get into the [facility] in [place] until December. She reports she thinks her thyroid is off, because her voice is gravely and her hair is falling out. Pt is asking if provider would put in Thyroid labs. Please call once placed. documented in this encounter [facility] 09-24-2022 Miscellaneous Notes Patient has been identified by name and date of : Yes, Provider IMMANUEL (Prescribing provider left practice, unable to be seen by endocrinology until January 05, 2023) Patient phones for refill(s): Requested Prescriptions Pending Prescriptions Disp Refills levothyroxine (SYNTHROID) 100 mcg tablet 90 tablet 3 Sig: Take half a pill every Thursday. Take one pill the other days of the week. Date of last office visit in primary care: 06/11/22 Labs-07/12/22 NOV-none med filled 08/06/21 Last 2 Encounter Wt Readings: Date: Wt: 08/13/2022 69.9 kg (154 lb) 08/07/2022 69.8 kg (153 lb 12.8 oz) Previous labs/tests for medication: Not applicable Please advise. Thank you. Kenzie Chaney documented in this encounter [facility] 08-14-2022 Miscellaneous Notes Left message on secure voicemail of results. Margaret Myers MA Positive for flu A. Negative for COVID and flu B. Treat symptoms with cjru-cpl-arkeenh medications follow-up with primary care if symptoms are worsening. documented in this encounter [facility] 08-07-2022 Instructions Katia Cancino APRN.CUSTOMER ENGAGEMENT MANAGER - 08/07/2022 10:02 AM EST RASH: Our exam shows you have a rash which has no clear cause. Rashes can result from infections, allergies, or irritation of the skin by chemicals or other environmental factors. Rashes can also result from scratching or rubbing the skin too much to relieve itching. Further medical examination may be needed to identify the specific cause and proper treatment of your skin rash. You should treat your rash as recommended by your doctor. If you have itching, you should avoid scratching as much as possible, as this further damages the skin. Ask your doctor or pharmacist if you have any questions about what topical medicines may help relieve your symptoms. Call your doctor right away if your rash is not better in 2-3 days, if it worsens, or if there are signs of infection (increased pain, redness, drainage or pus). documented in this encounter [facility] 08-07-2022 History of Presen t illness Narrative This note was created using NoteWriter. Subjective Anastasia Huntley is a 66 year old female. 66 year old female with PMH hypothyroid presents with complaints of rash. Acute onset 2 days ago Red and itchy rash Locates to her bilateral upper legs and bilateral upper arms. Denies fever or chills. Denies accompanying URI sx Denies malaise or fatigue Denies new lotions or soaps Denies recent travel. 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 The history is provided by the patient. No speech and language specialist was used. Rash This is a new problem. The current episode started in the past 7 days. The problem is unchanged. Location: legs and arms. The rash is characterized by itchiness and redness. She was exposed to a spider bite, plant contact and an insect bite/sting (?? jeans). Pertinent negatives include no anorexia, congestion, cough, diarrhea, eye pain, facial edema, fatigue, fever, joint pain, nail changes, rhinorrhea, shortness of breath, sore throat or vomiting. Past treatments include nothing. The treatment provided no relief. There is no history of allergies, asthma, eczema or varicella. 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 Take one pill the other days of the week. triamcinolone acetonide (NASACORT AQ) 55 mcg nasal inhaler Use 2 Sprays in the nose once daily. Olopatadine 0.2 % drop Use 1 Drop in both eyes once daily. Cholecalciferol, Vitamin D3, (VITAMIN D) 1,000 unit cap Take 3 capsules by mouth once daily. CETIRIZINE HCL (ZYRTEC ORAL) Take 0.5 tablets by mouth as needed. predniSONE (DELTASONE) 10 mg tablet Take 4 tabs daily for 3 days, then 2 tabs daily for 3 days, then 1 tab daily for 3 days with food. iron [id number] (MULTIGEN,CHROMAGEN) 70 mg-150 mg-10 mcg-2 mg-75 mg tab Take 1 tablet by mouth once daily. (Patient taking differently: Take 1 tablet by mouth as needed. ) fluticasone-vilanterol (BREO ELLIPTA) 100-25 mcg/dose inhaler Inhale 1 Inhalation as instructed once daily. (Patient taking differently: Inhale 1 Inhalation as instructed as needed. ) FAMILY HISTORY Problem Relation Age of Onset Stroke Mother brainstem age 50 years of age Cataract Mother Diabetes Father Cataract Father Ischemic Heart Disease Father No Family History Sister Ischemic Heart Disease Paternal Aunt 75 Ischemic Heart Disease Paternal Aunt 81 other (lupus) Maternal Aunt 40 Social History Tobacco Use Smoking status: Never Smokeless tobacco: Never Vaping Use Vaping Use: Never used Substance Use Topics Alcohol use: No Drug use: No Review of Systems Constitutional: Negative for activity change, appetite change, fatigue and fever. HENT: Negative for congestion, rhinorrhea and sore throat. Eyes: Negative for pain, discharge and itching. Respiratory: Negative for apnea, cough, chest tightness and shortness of breath. Cardiovascular: Negative for chest pain, palpitations and leg swelling. Gastrointestinal: Negative for abdominal pain, anorexia, diarrhea, nausea and vomiting. Musculoskeletal: Negative for arthralgias, back pain, gait problem and joint pain. Skin: Positive for rash. Negative for color change, nail changes and pallor. Allergic/Immunologic: Negative for environmental allergies, food allergies and immunocompromised state. Neurological: Negative for dizziness, facial asymmetry, light-headedness and headaches. Hematological: Negative for adenopathy. Does not bruise/bleed easily. Psychiatric/Behavioral: Negative for agitation and behavioral problems. Objective BP 130/78 Pulse 84 Temp 37.2 C (99 F) Resp 18 Wt 69.8 kg (153 lb 12.8 oz) SpO2 98% BMI 28.59 kg/m Physical Exam Vitals and nursing note reviewed. Constitutional: General: She is not in acute distress. Appearance: Normal appearance. She is normal weight. She is not ill-appearing, toxic-appearing or diaphoretic. HENT: Head: Normocephalic and atraumatic. Right Ear: Ear canal and external ear normal. Left Ear: Ear canal and external ear normal. Nose: Nose normal. No congestion or rhinorrhea. Mouth/Throat: Mouth: Mucous membranes are moist. Pharynx: No oropharyngeal exudate or posterior oropharyngeal erythema. Eyes: General: Right eye: No discharge. Left eye: No discharge. Extraocular Movements: Extraocular movements intact. Conjunctiva/sclera: Conjunctivae normal. Pupils: Pupils are equal, round, and reactive to light. Cardiovascular: Rate and Rhythm: Normal rate and regular rhythm. Pulses: Normal pulses. Heart sounds: Normal heart sounds. No murmur heard. No friction rub. Pulmonary: Effort: Pulmonary effort is normal. No respiratory distress. Breath sounds: Normal breath sounds. No stridor. No wheezing, rhonchi or rales. Chest: Chest wall: No tenderness. Abdominal: General: Abdomen is flat. There is no distension. Palpations: Abdomen is soft. There is no mass. Tenderness: There is no abdominal tenderness. There is no right CVA tenderness, left CVA tenderness, guarding or rebound. Hernia: No hernia is present. Musculoskeletal: General: No swelling, tenderness, deformity or signs of injury. Normal range of motion. Cervical back: Normal range of motion and neck supple. No rigidity. Right lower leg: No edema. Left lower leg: No edema. Lymphadenopathy: Cervical: No cervical adenopathy. Skin: General: Skin is warm and dry. Capillary Refill: Capillary refill takes less than 2 seconds. Coloration: Skin is not jaundiced or pale. Findings: Rash (Upper and lower extremities with raised, puritic macupapular. No abscess. No crepitus. No red streaking. No petechia.) present. No bruising, erythema or lesion. Neurological: General: No focal deficit present. Mental Status: She is alert and oriented to person, place, and time. Cranial Nerves: No cranial nerve deficit. Sensory: No sensory deficit. Motor: No weakness. Coordination: Coordination normal. Gait: Gait normal. Psychiatric: Mood and Affect: Mood normal. Behavior: Behavior normal. Thought Content: Thought content normal. Judgment: Judgment normal. Assessment and Plan ASSESSMENT/PLAN: 1. Rash - ICD9: 782.1, ICD10: R21 X 2 days Likely contact No red flags Hemodynamically stable - PREDNISONE 10 MG TABLET taper provided Follow up with PCP Katia Cancino APRN.CUSTOMER ENGAGEMENT MANAGER documented in this encounter [facility] 06-17-2022 Miscellaneous Notes Patient returned call and given provider's message below with verbalized understanding. Patient agreeable. Called and left a voicemail for the Patient to call back and ask for a nurse to receive the providers message. Jackie Mae RN Please recheck tsh in 4 weeks Regards, Clementina Mccloud MD Patient seeing winding operator in [place]. Patient is taking 100mcg but believes she accidentally took 2 pills one day. Patient saw results on mychart and only took 1/2 pill for a few days. Patient denies any symptoms at this time. Please let patient know that she is taking too much thyroid as per her lab results Would like her to confirm what does she is taking documented in this encounter [facility] 12-27-2021 Nurse Note Abdomen soft non-distended. Will continue to monitor. [facility] PRE-OP NURSING HAND OFF NOTE SBAR Hand off given to Tiana Brennan RN. Hand off was communicated verbally and at the patient's bedside and all questions were answered. FALLS/FRANCIS Patient did not experience a fall within the Preoperative area. Patient did not experience a burn within the Preoperative area. Nadeen Green RN documented in this encounter [facility] 12-27-2021 History and physical note UPDATED PROCEDURAL SEDATION HISTORY AND PHYSICAL EXAMINATION SERVICE DATE: 12/27/2021 SERVICE TIME: 9:47 PHYSICAL EXAM MUST BE COMPLETED ON ADMISSION PROCEDURE: colonoscopy, possible biopsies Procedure Indications: screening for colon cancer The History and Physical (completed in the past 30 days) has been reviewed and the patient has been examined. The contents accurately reflect the patient's condition with the following additions or revisions since the H&P was completed. ASA Class: ASA Class:: Patient with mild systemic disease Examination indicates no changes. AIRWAY: Airway Visualization of Uvula: Yes Mouth opening greater than 2 fingerbreadths: Yes Neck Full Range of Motion: Yes LUNGS: Lungs clear to auscultation CARDIAC: Regular rhythm,Regular rate Provisional Diagnosis/Treatment Plan: colonoscopy, possible biopsies SEDATION GOAL: Moderate This H&P can be found in the Electronic Medical Record . SIGNATURE: Theresa Torres MD PATIENT NAME: Anastasia Huntley DATE: December 27, 2021 TIME: 9:49 AM HISTORY AND PHYSICAL Anastasia Juarezaren 1955 REFERRING PHYSICIAN: Jocy Patel APRN.CNP CHIEF COMPLAINT: No chief complaint on file. HPI: The patient is a 66 year old female presents for screening for colon cancer via colonoscopy The patient denies blood in stools, denies abdominal pain, and denies changes in bowel habits. The patient notes no colon cancer in immediate family. The patient has had previous colonoscopy 2016 - no polyps found by pathology. 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 Take one pill the other days of the week. iron [id number] (MULTIGEN,CHROMAGEN) 70 mg-150 mg-10 mcg-2 mg-75 mg tab Take 1 tablet by mouth once daily. (Patient taking differently: Take 1 tablet by mouth as needed. ) triamcinolone acetonide (NASACORT) 55 mcg nasal inhaler Use 2 Sprays in the nose once daily. fluticasone-vilanterol (BREO ELLIPTA) 100-25 mcg/dose inhaler Inhale 1 Inhalation as instructed once daily. (Patient taking differently: Inhale 1 Inhalation as instructed as needed. ) Olopatadine 0.2 % drop Use 1 Drop in both eyes once daily. Cholecalciferol, Vitamin D3, (VITAMIN D) 1,000 unit cap Take 3 capsules by mouth once daily. CETIRIZINE HCL (ZYRTEC ORAL) Take 0.5 tablets by mouth as needed. ALLERGIES: Adhesive Tape (Rosins), Bactrim [Sulfamethoxazole], Naproxen, Seasonal Allergies, and Trimethoprim PERSONAL HISTORY: Social History Tobacco Use Smoking status: Never Smoker Smokeless tobacco: Never Used Vaping Use Vaping Use: Never used Substance Use Topics Alcohol use: No Drug use: No FAMILY HISTORY Problem Relation Age of Onset Stroke Mother brainstem age 50 years of age Cataract Mother Diabetes Father Cataract Father Ischemic Heart Disease Father No Family History Sister Ischemic Heart Disease Paternal Aunt 75 Ischemic Heart Disease Paternal Aunt 81 other (lupus) Maternal Aunt 40 REVIEW OF SYSTEMS: General - denies fevers HEENT - denies trauma/infections Resp - denies coughing up blood, denies breathing difficulties Cardiac - denies chest pain GI - denies abdominal pain, denies blood in stools, denies vomiting up of blood - denies blood in urine Endocrine - denies diabetes Psych - denies hallucinations PHYSICAL EXAMINATION: General: The patient is 66 year old female, well nourished, well hydrated in no acute distress. The patient is oriented to time, place, and person. VITALS: Blood pressure 115/60, pulse 65, temperature 37.6 C (99.7 F), temperature source Temporal Artery, resp. rate 16, weight 69.9 kg (154 lb 1.6 oz), SpO2 99 %. Body mass index is 28.65 kg/m . General WD/WN WF in no apparent distress, alert and oriented Head Normocephalic. EOM intact with sclera clear. Mouth with mucus membranes moist. Neck - supple with no jugular venous distention noted. Trachea is midline. Lungs clear to auscultation. Normal breath sounds. No rales/rhonchi/wheezing noted. Heart normal heart sounds. No rubs/clicks/murmurs noted. Regular rate. Abdomen soft and benign. Extremities no pitting edema noted. Skin Normal skin integrity. Neurological non focal Psych calm and appropriate Impression: screening for colon cancer Discussion/Plan/Recommendations: I have discussed the above with the patient. I have offered colonoscopy and EGD, possible biopsies I have explained the procedure to the patient. I have counseled the patient as to the risks of the procedure, including but not limited to: infection, bleeding, injury to any intrabdominal organs such as liver/spleen, perforation of the GI tract, inability to complete the procedure, complications of anesthesia, etc. the patient understands. The patient was offered a surgery/procedure at a [facility] facility. The provider and patient have discussed in detail the risk of exposure to and/or potential harm posed by the COVID-19 virus with having a surgery/procedure at this time versus the risk of delaying the surgery/procedure. It is not possible to know either the risk of delaying the surgery or procedure or chance of getting an infection with perfect accuracy, but a joint decision was made between the patient and the provider to proceed at this time with the scheduled surgery/procedure. The patient wishes to proceed. I have answered all questions to the patient s satisfaction and the patient has no further questions. Theresa Torers MD documented in this encounter [facility] 11-15-2021 Instructions Jocy Patel APRN.CUSTOMER ENGAGEMENT MANAGER - 11/15/2021 1:27 PM EST Health Information For Patients and the Community How to Prepare for Your Colonoscopy Using Golytely, Nulytely, Trilyte or Colyte Preparations IMPORTANT - Please Read These Instructions at Least 2 Weeks Before Your Colonoscopy [place] Instructions: ?Your bowel must be empty so that your doctor can clearly view your colon. Follow all of the instructions in this handout EXACTLY as they are written. If you do NOT follow the directions for when to start drinking the bowel preparation (see next page), your colonoscopy WILL be cancelled. ?Do NOT eat any solid food the ENTIRE day before your colonoscopy. ?Buy your bowel preparation at least 5 days before your colonoscopy. ?Do NOT mix the solution until the day before your colonoscopy. Designated Tandem Mill Operator on the Day of Your Exam A responsible family member or friend MUST come with you to your colonoscopy and REMAIN in the endoscopy area until you are discharged! You are NOT ALLOWED to drive, take a taxi or bus, or leave the Endoscopy Center ALONE. If you do not have a responsible recycler forklift driver truck driver (family member or friend) with you to take you home, your exam cannot be done with sedation and will be cancelled. Medications Some of the medicines you take may need to be stopped or adjusted before your colonoscopy. You MUST call the doctor who ordered any of the following medicines at least 2 weeks before your colonoscopy. ?Blood thinners -- such as Coumadin (warfarin), Plavix (clopidogrel), Ticlid (ticlopidine hydrochloride), Agrylin (anagrelide), Xarelto (Rivaroxaban), Pradaxa (Dabigatran), Eliquis (Apixaban), and Effient (Prasugrel). ?Insulin or diabetes pills. Please call the doctor that monitors your glucose levels. Your insulin dosage may need to be adjusted due to the diet restrictions required with this bowel preparation. (Please bring your diabetes medicines with you on the day of your procedure.) If you take aspirin, take it and ALL other medications prescribed by your doctor. On the day of your colonoscopy, take your medications with a sip of water. Revised 10/2016 1 Five (5) Days Before Your Colonoscopy ?Do NOT take medicines that stop diarrhea -- such as Imodium , Kaopectate , or Pepto Bismol . ?Do NOT take fiber supplements -- such as Metamucil , Citrucel , or Perdiem . ?Do NOT take products that contain iron -- such as multi-vitamins -- (the label lists what is in the products). ?Do NOT take vitamin E. Buy the prescription bowel preparation solution at your local pharmacy or drugstore pharmacy. Three (3) Days Before Your Colonoscopy Do NOT eat high-fiber foods -- such as popcorn, beans, seeds (flax, sunflower, quinoa), multigrain bread, nuts, salad/vegetables, or fresh and dried fruit. One (1) Day Before Your Colonoscopy Only drink clear liquids the ENTIRE DAY before your colonoscopy. Do NOT eat any solid foods. Drink at least 8 ounces of clear liquids every hour after waking up. The clear liquids you can drink include: ?water, apple, or white grape juice; broth; coffee or tea (without milk or creamer); clear carbonated beverages such as brianna jean carlos or lemon-[place] soda; Gatorade or other sports drinks (not red); Kamaljit-Aid or other flavored drinks (not red). You may eat plain jello or other gelatins (not red) or popsicles (not red). Do NOT drink alcohol on the day before or the day of the procedure. 2 Revised 10/2016 When to Mix and Drink Your Bowel Prep Follow the instructions on the label. After mixing, place the solution in the refrigerator for a couple of hours before drinking. You may add the flavor packet that came with the bowel preparation. DO NOT add ice, sugar or any flavorings to the solution. Evening Before Your Colonoscopy ?Start drinking the bowel preparation at 6 PM the evening before your colonoscopy. Drink an 8-oz glass of bowel preparation every 10 minutes. You must finish drinking the solution by 9 PM the night before your scheduled procedure. ?You may continue to drink clear liquids only until midnight. Do NOT eat or drink ANYTHING after midnight the night before your procedure or your procedure may be cancelled. This is for your safety and will reduce the risk of having any food or liquid in your stomach move into your lungs (aspiration) during a procedure. If you take aspirin, take it and ALL other prescribed medicines with a sip of water on the day of your colonoscopy. Contact Information: If you are unable to keep your appointment or have any questions about the instructions, please call the facility where the procedure is being performed. Call between the hours of 8:00 AM and 5:00 PM. If you are calling after 5:00 PM, please call Nurse material control supervisor at [phone]. [facility] [address] [place] [id number] Index # [id number] Revised 10/2016 3 Colonoscopy Procedure Overview Please Read Prior to the Procedure What is a Colonoscopy A colonoscopy is an outpatient procedure in which the inside of the large intestine (colon and rectum) is examined. A colonoscopy is commonly used to evaluate gastrointestinal symptoms, such as rectal and intestinal bleeding, abdominal pain, or changes in bowel habits. Colonoscopies are also performed in individuals without symptoms to check for colorectal polyps or cancer. A screening colonoscopy is recommended for anyone 50 years of age and older, and for anyone with parents, siblings or children with a history of colorectal cancer or polyps. What Happens Before a Colonoscopy To have a successful colonoscopy, your bowel must be empty so that your physician can clearly view the colon. To do this, it is very important to read and follow all of the instructions given to you at least 2 weeks BEFORE your exam. If your bowel is not empty, your colonoscopy will not be successful and may have to be repeated. If you feel nauseated or vomit while taking the bowel preparation, wait 30 minutes before drinking more fluid and start with small sips of solution. Some activity (such as walking) or a few soda crackers may help decrease the nausea you are feeling. If the nausea persists, please contact nurse production crew supervisor at [phone]. You may experience skin irritation around the anus due to the passage of liquid stools. To prevent and treat skin irritation, you should: ?Apply Vaseline or Desitin ointment to the skin around the anus before drinking the bowel preparation medications. These products can be purchased at any [facility]. ?Wipe the skin after each bowel movement with disposable wet wipes instead of toilet paper. These are found in the toilet paper area of the store. ?Sit in a bathtub filled with warm water for 10 to 15 minutes after you finish passing a stool; after soaking, blot the skin dry with a soft cloth, apply Vaseline or Desitin ointment to the anal area, and place a cotton ball just outside your anus to absorb leaking fluid. What Happens During a Colonoscopy During a colonoscopy, an experienced physician uses a colonoscope (a long, flexible instrument about 1/2 inch in diameter) to view the lining of the colon. The colonoscope is inserted into the rectum and advanced through the large intestine. If necessary during a colonoscopy, small amounts of tissue can be removed for analysis (a biopsy) and polyps can be identified and entirely removed. In many cases, a colonoscopy allows accurate diagnosis and treatment of colorectal problems without the need for a major operation. Revised 10/2016 5 ?You are asked to wear a hospital gown and an IV will be started. ?You are given a pain reliever and a sedative intravenously (in your vein). You will feel relaxed and somewhat drowsy. ?You will lie on your left side, with your knees drawn up towards your chest. ?A small amount of air is used to expand the colon so the physician can see the colon hunter. ?You may feel mild cramping during the procedure. Cramping can be reduced by taking slow, deep breaths. ?The colonoscope is slowly withdrawn while the lining of your bowel is carefully examined. ?The procedure lasts from 30 minutes to 1 hour. What Happens After a Colonoscopy ?You will stay in a recovery room for observation until you are ready for discharge. ?You may feel some cramping or a sensation of having gas, but this quickly passes. ?If sedation has been given, a responsible family member or friend must drive you home. ?Avoid alcohol, driving, and operating machinery for 24 hours following the procedure. ?Unless otherwise instructed, you may immediately return to your normal diet. We recommend you wait until the day after your procedure to resume normal activities. ?If polyps were removed or a biopsy was taken, the physician performing your colonoscopy will tell you when it is safe to resume taking your blood thinners. ?If a biopsy was taken or a polyp was removed, you may notice a little amount of rectal bleeding for 1 to 2 days after the procedure. If you have a large amount of rectal bleeding, high or persistent fevers, or severe abdominal pain within the next 2 weeks, please go to your local emergency room and call the physician who performed your exam. 6 Revised 10/2016 Copyright [id number] [facility]. All rights reserved. Revised 10/2016 documented in this encounter [facility] 11-15-2021 Miscellaneous Notes Questionnaire not completed, but patient has upcoming appointment with Dr. Torres for this. Will close this encounter. Let patient know that colonoscopy has been ordered and bowel prep has been been sent to [facility]. Thank you Jocy Patel APRN.CNP Pleae call patient and review questionnaire. Then I will place order for colonoscopy and bowel prep. Thank you Jocy Patel APRN.CNP Patient returns call and provider message below given. Patient would like to precede with order for colonoscopy. I wasn't sure which Colonoscopy order to pend. Ludy Ken RN Left detailed message on secure VM. Please let patient know that her it looks like after the colonoscopy in 2016, it was recommended for a follow up in 5 years since they found a polyp on the original one. Would you like to go ahead and get this ordered and scheduled? Thank you Jocy Patel APRN.CNP Pt was wondering if she should have a colonoscopy. She had one six years ago and is stating that she keeps getting reminders about it. Please advise. documented in this encounter [facility] documented as of this encounter (statuses as of 01/05/2023) [facility]11-02-2019 History of Past illness Narrative* Problem Noted Date Resolved Date H/O partial thyroidectomy 07/30/20192022 Trimalleolar fracture 05/11/2019 01/05/2023 Nontoxic single thyroid nodule 05/09/2016 0 01/05/2023 Special screening for malignant neoplasms, colon 10/05/2015 10/05/2015 Abnormal weight gain 02/12/2015 01/05/2023 documented as of this encounter (statuses as of 01/23/2023) [facility] History of Past illness Narrative* Problem Noted Date Resolved Date H/O partial thyroidectomy 07/30/20192022 Trimalleolar fracture 05/11/2019 01/05/2023 Nontoxic single thyroid nodule 05/09/2016 0 01/05/2023 Special screening for malignant neoplasms, colon 10/05/2015 10/05/2015 Abnormal weight gain 02/12/2015 01/05/2023 documented as of this encounter (statuses as of 01/31/2023) [facility] History of Past illness Narrative* Problem Noted Date Diagnosed Date Resolved Date H/O partial thyroidectomy 07/30/2019 Trimalleolar fracture 05/11/20192022 Nontoxic single thyroid nodule 05/09/2016 01/05/2023 Special screening for malign ant neoplasms, colon 10/05/2015 10/05/2015 Abnormal weight gain 02/12/2015 023 documented as of this encounter (statuses as of 05/22/2023) [facility] History of Past illness Narrative* Problem Noted Date Diagnosed Date Resolved Date H/O partial thyroidectomy 07/30/2019 Trimalleolar fracture 05/11/20192022 Nontoxic single thyroid nodule 05/09/2016 01/05/2023 Special screening for malign ant neoplasms, colon 10/05/2015 10/05/2015 Abnormal weight gain 02/12/2015 023 documented as of this encounter (statuses as of 07/31/2023) [facility] History of Past illness Narrative* Problem Noted Date Diagnosed Date Resolved Date H/O partial thyroidectomy 07/30/2019 Trimalleolar fracture 05/11/20192022 Nontoxic single thyroid nodule 05/09/2016 01/05/2023 Special screening for malign ant neoplasms, colon 10/05/2015 10/05/2015 Abnormal weight gain 02/12/2015 023 documented as of this encounter (statuses as of 08/02/2023) [facility] History of Past illness Narrative* Problem Noted Date Resolved Date Special screening for malignant neoplasms, colon 10/05/2015 10/05/2015 documented as of this encounter (statuses as of 12/28/2021) [facility] History of Past illness Narrative* Problem Noted Date Resolved Date Special screening for malignant neoplasms, colon 10/05/2015 10/05/2015 documented as of this encounter (statuses as of 03/01/2022) [facility] History of Past illness Narrative* Problem Noted Date Resolved Date Special screening for malignant neoplasms, colon 10/05/2015 10/05/2015 documented as of this encounter (statuses as of 06/17/2022) [facility] History of Past illness Narrative* Problem Noted Date Resolved Date Special screening for malignant neoplasms, colon 10/05/2015 10/05/2015 documented as of this encounter (statuses as of 08/07/2022) [facility] History of Past illness Narrative* Problem Noted Date Resolved Date Special screening for malignant neoplasms, colon 10/05/2015 10/05/2015 documented as of this encounter (statuses as of 08/14/2022) [address]-2016 History of Past illness Narrative* Problem Noted Date Resolved Date Special screening for malignant neoplasms, colon 10/05/2015 10/05/2015 documented as of this encounter (statuses as of 09/30/2022) [address]-2016 History of Past illness Narrative* Problem Noted Date Resolved Date Special screening for malignant neoplasms, colon 10/05/2015 10/05/2015 documented as of this encounter (statuses as of 10/23/2022) [facility] Special screening for malignant neoplasms, colon- Primary documented [facility] this encounter [facility]* Diagnosis Acquired hypothyroidism- Primary Unspecified hypothyroidism documented in this encounter [facility] note* Diagnosis Rash- Primary Rash and other nonspecific skin eruption documented in this encounter [facility] note* Diagnosis Hypothyroidism, unspecified type- Primary documented in this encounter [facility] note* Diagnosis Acquired hypothyroidism- Primary Unspecified hypothyroidism Vitamin D deficiency Unspecified vitamin D deficiency Osteopenia of neck of left femur documented in this encounter [facility] note* Diagnosis Encounter for routine gynecologic examination in Medicare patient- Primary Encounter for screening mammogram for breast cancer Mastalgia Mastodynia documented in this encounter [facility]* Diagnosis Acquired hypothyroidism- Primary Unspecified hypothyroidism documented in this encounter [facility] note* Diagnosis Acquired hypothyroidism- Primary Unspecified hypothyroidism Vitamin D deficiency Unspecified vitamin D deficiency Osteopenia of neck of left femur documented in this encounter [facility] note* Diagnosis Screening mammogram for breast cancer documented in this encounter [facility] for referral (narrative)* Outpatient Procedure (Routine) - Closed Specialty Diagnoses / Procedures Referred By Ofelia pollack Referred To Contact [facility] Diagnoses Special screening for malignant neoplasms, colon Procedures COLONOSCOPY SCREENING COLONOSCOPY FLX DX W/COLLJ SPEC WHEN Jocy Kapoor APRN.CNP [address] [place] [address] [facility] [address] [place] [address] Referral ID Status Reason Start Date Expiration Date V isits Requested Visits Authorized [id number] Closed Auto-Generate d Referral 12/12/2021 09/27/2022 1 [facility] Diagnostic Procedure Only (Routine) - Pending Review Specialty Diagnoses / Procedures Referred By Ofelia pollack Referred To Contact [facility] Diagnoses Encounter for routine gynecologic examination in Medicare patient Encounter for screening mammogram for breast cancer Procedures SOHAIL SCREENING W ADRIANNA SCREENING DIGITAL BREAST TOMOSYNTHESIS BI SCREENING MAMMOGRAPHY BI 2-VIEW BREAST INC Cathy Bruce APRN.CNP [address] [place] [address] [facility] [address] [place] [address] Referral ID Status Reason Start Date Expiration Date Visits Requested Visits Authorized [id number] Pending Review Auto-Generat ed Referral 01/30/2023 02/29/2024 1 1 [facility] for referral (narrative)* Diagnostic Procedure Only (Routine) - Closed Specialty Diagnoses / Procedures Referred By Ofelia pollack Referred To Contact [facility] Diagnoses Screening mammogram for breast cancer Procedures SOHAIL SCREENING SCREENING MAMMOGRAPHY BI 2-VIEW BREAST INC CAD Mary Patel APRN.CUSTOMER ENGAGEMENT MANAGER [address] [place] [address] [facility] [address] [place] [address] Referral ID Status Reason Start Date Expiration Date V isits Requested Visits Authorized [id number] Closed Auto-Generate d Referral 10/28/2022 11/27/2023 1 1 [facility] for visit Narrative* Outpatient Procedure (Routine) - Closed Specialty Diagnoses / Procedures Referred By Ofelia pollack Referred To Contact [facility] Diagnoses Special screening for malignant neoplasms, colon Procedures COLONOSCOPY SCREENING COLONOSCOPY FLX DX W/COLLJ SPEC WHEN Jocy Kapoor APRN.CUSTOMER ENGAGEMENT MANAGER [address] [place] [address] [facility] [address] [place] [address] Referral ID Status Reason Start Date Expiration Date V isits Requested Visits Authorized [id number] Closed Auto-Generate d Referral 12/12/2021 09/27/2022 1 1 [facility] for visit Narrative* Diagnostic Procedure Only (Routine) - Closed Specialty Diagnoses / Procedures Referred By Ofelia pollack Referred To Contact [facility] Diagnoses Screening mammogram for breast cancer Procedures SOHAIL SCREENING SCREENING MAMMOGRAPHY BI 2-VIEW BREAST INC CAD Mary Patel APRN.CUSTOMER ENGAGEMENT MANAGER [address] [place] [address] [facility] [address] [place] [address] Referral ID Status Reason Start Date Expiration Date V isits Requested Visits Authorized [id number] Closed Auto-Generate d Referral 10/28/2022 11/27/2023 1 1 [facility] Summary Purpose Family History No Family History Records FoundNo Family History Records FoundNo Family History Records Found Advance Directives No Advanced Directives Records FoundDocuments on File Type Date 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 Advance Directive(s) 12/05/2021 1:59 PM Medications Administered Section Inactive Administered Medications - up to 3 most recent administrations Medication Order MAR Action Action Date Dose Rate Site fentaNYL 50 mcg/mL 25-100 mcg injection (SUBLIMAZE) 25-100 mcg, INTRAVENOUS, DIRECTED, Starting on Thu12/27/21 at 1000, Until Thu12/27/21 at 1359, DOSING DIRECTED BY PHYSICIAN FOR PROCEDURAL SEDATION ONLY, Intraprocedure Given 12/27/2021 9:54 AM EDT 50 mcg lactated ringers iv infusion 30 mL/hr, INTRAVENOUS, CONTINUOUS, Starting on Thu12/27/21 at 0930, Until Thu12/27/21 at 1025, Preprocedure New Bag/Syringe/Hetal le 12/27/2021 9:30 AM EDT 30 mL/hr 30 mL/hr Hand, Right midazolam (PF) 1-5 mg injection (VERSED) 1-5 mg, INTRAVENOUS, DIRECTED, Starting on Thu12/27/21 at 1000, Until Thu12/27/21 at 1359, DOSING DIRECTED BY PHYSICIAN FOR PROCEDURAL SEDATION ONLY, Intraprocedure Given 12/27/2021 9:58 AM EDT 2 mg Health Concerns Infection Onset Date Last Indicated Resolved Time COVID-19 Rule-Out 08/13/2022 08/13/2022 08/14/2022 4:24 AM EST Additional Source Comments INFORMATION SOURCE (unrecogn ized section and content) DATE CREATED AUTHOR AUTHOR'S ORGANIZ ATION 03/24/2018 [facility] DATE CREATED AUTHOR AUTHOR'S ORGANIZ ATION 09/19/2023 [facility] Source Comments (unrecognize d section and content) In the event this informatio n is protected by the Federal Confidentiality of Alcohol and Drug Abuse Patient Records regulations: The Federal rules restrict any use of the information to criminally investigate or prosecute any alcohol or drug abuse patient.[facility] the event this information is protected by the Federal Confidentiality of Alcohol and Drug Abuse Patient Records regulations: The Federal rules restrict any use of the information to criminally investigate or prosecute any alcohol or drug abuse patient.[facility] the event this information is protected by the Federal Confidentiality of Alcohol and Drug Abuse Patient Records regulations: The Federal rules restrict any use of the information to criminally investigate or prosecute any alcohol or drug abuse patient.[facility] the event this information is protected by the Federal Confidentiality of Alcohol and Drug Abuse Patient Records regulations: The Federal rules restrict any use of the information to criminally investigate or prosecute any alcohol or drug abuse patient.[facility] the event this information is protected by the Federal Confidentiality of Alcohol and Drug Abuse Patient Records regulations: The Federal rules restrict any use of the information to criminally investigate or prosecute any alcohol or drug abuse patient.[facility] the event this information is protected by the Federal Confidentiality of Alcohol and Drug Abuse Patient Records regulations: The Federal rules restrict any use of the information to criminally investigate or prosecute any alcohol or drug abuse patient.[facility] the event this information is protected by the Federal Confidentiality of Alcohol and Drug Abuse Patient Records regulations: The Federal rules restrict any use of the information to criminally investigate or prosecute any alcohol or drug abuse patient.[facility] the event this information is protected by the Federal Confidentiality of Alcohol and Drug Abuse Patient Records regulations: The Federal rules restrict any use of the information to criminally investigate or prosecute any alcohol or drug abuse patient.[facility] the event this information is protected by the Federal Confidentiality of Alcohol and Drug Abuse Patient Records regulations: The Federal rules restrict any use of the information to criminally investigate or prosecute any alcohol or drug abuse patient.[facility] the event this information is protected by the Federal Confidentiality of Alcohol and Drug Abuse Patient Records regulations: The Federal rules restrict any use of the information to criminally investigate or prosecute any alcohol or drug abuse patient.[facility] the event this information is protected by the Federal Confidentiality of Alcohol and Drug Abuse Patient Records regulations: The Federal rules restrict any use of the information to criminally investigate or prosecute any alcohol or drug abuse patient.[facility] the event this information is protected by the Federal Confidentiality of Alcohol and Drug Abuse Patient Records regulations: The Federal rules restrict any use of the information to criminally investigate or prosecute any alcohol or drug abuse patient.[facility] the event this information is protected by the Federal Confidentiality of Alcohol and Drug Abuse Patient Records regulations: The Federal rules restrict any use of the information to criminally investigate or prosecute any alcohol or drug abuse patient.[facility] Care Teams (unrecognized sec tion and content) Technical Services Representative Relationship Specialty Start Date End Date Clementina Mccloud MD [address] [place] [address] PCP - General Internal Medicine 04/13/19 Technical Services Representative Relationship Specialty Start Date End Date Clementina Mccloud MD [address] [place] [address] PCP - General Internal Medicine 04/13/19 Technical Services Representative Relationship Specialty Start Date End Date Clementina Mccloud MD [address] [place] [address] PCP - General Internal Medicine 04/13/19 Technical Services Representative Relationship Specialty Start Date End Date Clementina Mccloud MD [address] [place] [address] PCP - General Internal Medicine 04/13/19 Technical Services Representative Relationship Specialty Start Date End Date Clementina Mccloud MD [address] [place] [address] PCP - General Internal Medicine 04/13/19 Technical Services Representative Relationship Specialty Start Date End Date Clementina Mccloud MD [address] [place] [address] PCP - General Internal Medicine 04/13/19 Technical Services Representative Relationship Specialty Start Date End Date Clementina Mccloud MD [address] [place], [place] [id number] PCP - General Internal Medicine 04/13/19 Technical Services Representative Relationship Specialty Start Date End Date Clementina Mccloud MD [address] [place], [place] [id number] PCP - General Internal Medicine 04/13/19 Technical Services Representative Relationship Specialty Start Date End Date Triston Mcconnell MD [address] [place] [address] PCP - General Internal Medicine 07/31/23 Technical Services Representative Relationship Specialty Start Date End Date Clementina Mccloud MD [address] [place], [place] [id number] PCP - General Internal Medicine 04/13/19 07/30/23 Reason for Visit (unrecogniz ed section and content) Reason Comments Lab Orders Reason Comments Rash Pt reported possible insect bites, rash x2 days. Reason Comments Results Reason Onset Date Comments Refill Request 09/24/2022 Reason Comments Consult Reason Comments Yearly Exam Reason Comments Orders Reason Comments Follow Up Established Patient FOR RECORDS PERTAINING TO PATIENTS WHO ARE OR HAVE BEEN ENROLLED IN A CHEMICAL DEPENDENCY/SUBSTANCEABUSE PROGRAM, SOME INFORMATION MAY BE OMITTED. This clinical summary was aggregated from multiple sources. Caution should be exercised in using it in the provision of clinical care. This summary normalizes information from multiple sources, and as a consequence, information in this document may materially change the coding, format and clinical context of patient data. In addition, data may be omitted in some cases. CLINICAL DECISIONS SHOULD BE BASED ON THE PRIMARY CLINICAL RECORDS. [employer] provides no warranty or guarantee of the accuracy or completeness of information in this document.
[2023-11-04 15:39] LABS: Bacteria 0 SEEN /hpf (None Seen); Mucous, Urine 0 SEEN /hpf (<or=2+); Red Blood Cells-Urine 0 SEEN /hpf (0-5); Squamous Epithelial Cells - UA 0 SEEN /hpf (5-10); White Blood Cells 0 SEEN /hpf (0-5)
[2023-11-04 17:00] LABS: Color, Urine Yellow (Yellow); Glucose, Dipstick Normal (Normal); Ketone-Dipstick Negative (Negative); Leukocyte Esterase-Dipstick Negative /ul (Negative); Nitrite-Dipstick Negative (Negative); Occult Blood-Urine Negative /ul (Negative); Protein-Dipstick Negative (Negative); Urine Bilirubin Dipstick Negative (Negative); Urine Clarity Clear (Clear); Urine Urobilinogen Normal (Normal)
== END | disposition home or self-care (01) ==
LOC: BIMLAB 10:33
PROVIDERS: PCP Internal Medicine; Referring Provider Internal Medicine; Visit Provider Internal Medicine
DX: R30.0 Dysuria (principal); E03.9 Hypothyroidism, unspecified; E55.9 Vitamin D deficiency, unspecified; Z13.6 Encounter for screening for cardiovascular disorders
CPT/HCPCS: 36415; 80053; 80061; 81001; 82306; 85025; 87086; 87088

== ENCOUNTER → 2025-06-08 | Outpatient (CLI) | payer MEDICARE, OTHER, SELFPAY ==
[2025-06-08 12:30] LABS: Hematocrit 40.6 % (37-47); Hemoglobin 13.3 g/dL (12.0-15.0); Immature Granulocytes Count 0.030 X10^3/uL (0.0-0.0); Mean Corp Hgb Conc 32.8 g/dL (32-36); Mean Corpuscular Volume 92.7 fL (81-99); Mean Platelet Vol. 10.8 fl (6.2-12.0); NRBC Flagged by Analyzer 0 % (0-5); Platelet Count 299 K/mm3 (150-450); RBC Distribution Width CV 12.1 % (11.6-14.6); RBC Distribution Width SD 42.0 fl (35.1-43.9); Red Blood Count 4.38 M/mm3 (4.2-5.4); White Blood Count 5.8 K/mm3 (4.4-11.0)
[2025-06-08 13:05] LABS: AST(SGOT) 15 U/L (<=31); Alanine Aminotransfer ALT/SGPT 13 U/L (<=34); Albumin, Serum 4.2 g/dL (3.4-4.8); Alkaline Phosphatase 64 U/L (35-104); Anion Gap 11 (5-15); BUN 13 mg/dL (4-19); BUN/Creat Ratio 14.0 RATIO (10-20); Calcium,Total 9.5 mg/dL (7.6-11.0); Carbon Dioxide 23.9 mmol/L (21.0-32.0); Chloride 105 mmol/L (98-108); Cholesterol 204 mg/dL (<=200); Globulin 2.8 g/dL (2.2-4.2); Glucose 87 mg/dL (70-99); Low Density Lipoprotein Calc. 119 mg/dL; Potassium 3.9 mmol/L (3.3-5.1); Triglycerides 52 mg/dL; Very Low Density Lipoprotein 10 mg/dL (5-40); Vitamin D,25 Hydroxy 47.2 ng/mL (30-100); cholesterol:hdl ratio screen 2.73
== END | disposition home or self-care (01) ==
LOC: BIMLAB 08:40
PROVIDERS: PCP Internal Medicine; Referring Provider Internal Medicine; Visit Provider Internal Medicine
DX: Z00.00 Encounter for general adult medical examination without abnormal findings (principal); M85.80 Other specified disorders of bone density and structure, unspecified site; E03.9 Hypothyroidism, unspecified; M35.9 Systemic involvement of connective tissue, unspecified
CPT/HCPCS: 36415; 80053; 80061; 82306; 85025

== ENCOUNTER → 2025-07-06 | Outpatient (CLI) | payer MEDICARE, OTHER, SELFPAY ==
--- NOTE | 2025-07-06 16:00 | BD_ITS ---
PROCEDURE: DEXA BONE DENSITY STUDY 07/06/2025 REASON FOR EXAM: OSTEOPENIA F, age 69 y/o . Patient is postmenopausal.. TECHNIQUE: Procedure Code: BDDBD Modality: DX Procedure: DEXA BONE DENSITY STUDY COMPARISON: None FINDINGS: BMD and T-SCORES Lumbar spine: 0.961 g/cm2, T-score -0.8 Levels: L1 through L4 Left femoral neck: 0.575 g/cm2, T-score -2.5 Left total hip: 0.789 g/cm2, T-score -1.3 Right femoral neck: 0.607 g/cm2, T-score -2.2 Right total hip: 0.752 g/cm2, T-score -1.6 The World Health Organization has defined the following categories based on bone density: Normal bone density: T-score equal to or greater than -1.0 Osteopenia: T-score between -1.0 and -2.5 Osteoporosis: T-score equal to or less than -2.5 FRAX (or Comparable) Fracture Risk Assessment: 10 Year Probability of Fracture: Major Osteoporotic Fracture: 21% Hip Fracture: 4.7% (Note: FRAX is not to be reported in setting of normal range bone density, osteoporosis on DEXA, known history of osteoporosis, prior osteoporotic hip or vertebral fracture, or for any patient undergoing pharmacological treatment for bone loss.) The National Osteoporosis Foundation (NOF) recommends pharmacological treatment for patients with a FRAX 10-year risk of 3% or higher for a hip fracture, or 20% or higher for a major osteoporotic fracture, to prevent osteoporosis and reduce fracture risk. The patient does meet the pharmacological treatment recommendations for prevention of osteoporosis. BD/Dexa Bone Density Study IMPRESSION: OSTEOPOROSIS. Recommend follow-up as clinically warranted. Reading Location: [id number]
== END | disposition home or self-care (01) ==
LOC: OPBD 15:53
PROVIDERS: PCP Internal Medicine; Referring Provider Internal Medicine; Visit Provider Internal Medicine
DX: Z78.0 Asymptomatic menopausal state (principal)
CPT/HCPCS: 77080